=== PATIENT | female | born 1980 | race Caucasian/White ===

== ENCOUNTER 2020-07-01 04:29 | Emergency (ER) | payer OTHER ==
[~2020-07-01] VITALS: Ht 180.3 cm; Wt 109.1 kg
[2020-07-01] MEDS ORDERED: METF10004 PO (05:25)
[2020-07-01] MEDS ORDERED: BUSP10TA PO (05:25)
[2020-07-01] MEDS ORDERED: JARD1TAB PO (05:25)
[2020-07-01] MEDS ORDERED: HUMU500S2 SQ (05:25)
[2020-07-01] MEDS ORDERED: HYDR-3363 PO (05:25)
[2020-07-01] MEDS ORDERED: PIOG1TAB36 PO (05:25)
[2020-07-01 05:26] LABS: HEMATOCRIT 43.2 % (36.0-47.0); HEMOGLOBIN 13.4 g/dl (12.0-15.5); MEAN CORPUSCULAR HEMOGLOBIN 27.6 pg (27.0-33.0); MEAN CORPUSCULAR VOLUME 89.1 fl (80.0-96.0); PLATELET COUNT, AUTOMATED 210 10^3/uL (150-450); RED BLOOD COUNT 4.85 10^6/uL (4.00-5.40); WHITE BLOOD COUNT 7.8 10^3/uL (4.0-10.0)
--- NOTE | 2020-07-01 06:00 | REPVR ---
PROCEDURE INFORMATION: Exam: XR Chest, 1 View Exam date and time: 07/01/2020 5:38 AM Age: 40 years old Clinical indication: Chest pain; Type not specified TECHNIQUE: Imaging protocol: XR of the chest Views: 1 view. COMPARISON: No relevant prior studies available. FINDINGS: Lungs: Unremarkable. No consolidation. Pleural space: Unremarkable. No pleural effusion. No pneumothorax. Heart/Mediastinum: Unremarkable. No cardiomegaly. Bones/joints: Unremarkable. IMPRESSION: No acute findings. Electronically signed by: Kris Gonzalez On 07/01/2020 06:00:43 AM
[2020-07-01 06:15] VITALS: BP 130/68
--- NOTE | 2020-07-02 14:34 | ECGEPIP ---
[facility] - ED Test Date: 2020-07-01 Pat Name: ERMIAS FIELD Department: Room: - Gender: Female [employer]: PORTIA : 1980 Requested By: Darrel Lopes Order Number: [id number] Reading MD: Haley Parrish Measurements Intervals [place] Rate: 89 P: 35 MI: 158 QRS: -2 QRSD: 93 T: 30 QT: 339 QTc: 415 Interpretive Statements SINUS RHYTHM No prior Electronically Signed on 07-02-2020 14:34:21 EST by Haley Parrish
== END 2020-07-01 06:39 | disposition home or self-care (01) ==
LOC: M ED 04:29
DX: F41.1 Generalized anxiety disorder (principal); R00.2 Palpitations; E11.9 Type 2 diabetes mellitus without complications; E66.9 Obesity, unspecified; Z79.4 Long term (current) use of insulin; Z79.899 Other long term (current) drug therapy

== ENCOUNTER 2020-08-21 12:13 | Emergency (ER) | payer OTHER ==
[~2020-08-21] VITALS: Ht 180.3 cm; Wt 111.4 kg
[~2020-08-21 12:13] MED LIST changes: -CEFD1CAP8 PO; -ONDA4TAB6 PO
[2020-08-21] MEDS ORDERED: NS 1,000 ML IV ONE (12:35)
[2020-08-21] MEDS ORDERED: ONDANSETRON 4MG/2ML VIAL IV ONE (12:35)
[2020-08-21 12:59] LABS: VENOUS BASE EXCESS -0.6 (-2.0-2.0); VENOUS HCO3 24.2 MEQ/L (23.0-27.0); VENOUS O2 SATURATION 81.9 % (60.0-80.0); VENOUS PARTIAL PRESSURE CO2 40.5 mmHg (38.0-50.0); VENOUS PARTIAL PRESSURE O2 44.9 mmHg (30.0-50.0); VENOUS PH 7.395 UNITS (7.330-7.430); VENOUS STANDARD HCO3 23.6 MEQ/L; VENOUS TOTAL CO2 25.5 MEQ/L (24.0-28.0)
[2020-08-21 13:06] LABS: BASO % 0.3 % (0.0-1.0); HEMATOCRIT 45.2 % (36.0-47.0); HEMOGLOBIN 14.4 g/dl (12.0-15.5); LYMPH # 0.7 10^3/uL (1.5-5.0); LYMPH % 7.7 % (24.0-44.0); MEAN CORPUSCULAR HEMOGLOBIN 27.5 pg (27.0-33.0); MEAN CORPUSCULAR HGB CONC 31.9 g/dl (32.0-36.5); MEAN CORPUSCULAR VOLUME 86.3 fl (80.0-96.0); MONO # 0.9 10^3/uL (0.0-0.8); MONO % 9.8 % (2.0-8.0); NEUTROPHILS # 7.1 10^3/uL (1.5-8.5); NEUTROPHILS % 81.7 % (36.0-66.0); PLATELET COUNT, AUTOMATED 165 10^3/uL (150-450); RED BLOOD COUNT 5.24 10^6/uL (4.00-5.40); WHITE BLOOD COUNT 8.7 10^3/uL (4.0-10.0)
[2020-08-21] MEDS ORDERED: KETOROLAC 30 MG/ML 1ML VIAL IV ONE (13:25)
[2020-08-21 13:33] LABS: HEMOGLOBIN A1c 9.6 %
[2020-08-21 13:36] LABS: ACETONE/KETONE 1.96 MG/DL (<2.81); ALBUMIN 3.6 GM/DL (3.2-5.2); BILIRUBIN,DIRECT 0.2 MG/DL (0.0-0.2); BILIRUBIN,TOTAL 0.4 MG/DL (0.2-1.0)
[2020-08-21 14:38] LABS: APPEARANCE, URINE CLOUDY (CLEAR); BACTERIA, URINE AUTO 1+ (NEGATIVE); BILIRUBIN, URINE AUTO NEGATIVE (NEGATIVE); BLOOD, URINE BLOOD 2+ (NEGATIVE); COLOR, URINE YELLOW (YELLOW); GLUCOSE, URINE (UA) AUTO 3+ mg/dL (NEGATIVE); KETONE, URINE AUTO NEGATIVE (NEGATIVE); LEUKOCYTE ESTERASE, URINE AUTO 2+ (NEGATIVE); MUCUS, URINE SMALL (NEGATIVE); NITRITE, URINE AUTO POSITIVE (NEGATIVE); PROTEIN, URINE AUTO 1+ mg/dL (NEGATIVE); RBC, URINE AUTO 10 /HPF (0-3); SPECIFIC GRAVITY URINE AUTO 1.012 (1.002-1.035); SQUAMOUS EPITHELIAL CELL UR AU 2 /HPF (0-6); UROBILINOGEN, URINE AUTO 0.2 mg/dL (0.0-2.0); WBC, URINE AUTO 125 /HPF (0-3)
[2020-08-21] MEDS ORDERED: cefTRIAXone SOD 1 GM in D5W MINI-BAG PLUS 50 ML IV ONE (14:55)
[2020-08-21] MEDS ORDERED: CEFD1CAP8 PO (15:01)
[2020-08-21] MEDS ORDERED: ONDA4TAB6 PO (15:01)
[2020-08-21 15:36] VITALS: BP 136/74
== END 2020-08-21 15:56 | disposition home or self-care (01) ==
LOC: M ED 12:13
DX: N39.0 Urinary tract infection, site not specified (principal); R11.2 Nausea with vomiting, unspecified; E11.9 Type 2 diabetes mellitus without complications; Z79.899 Other long term (current) drug therapy
CPT/HCPCS: 80047; 80076; 81001; 82010; 82803; 83036; 84702; 85025; 96361; 96365; 96375; 99284; J0696; J1885; J2405

== ENCOUNTER → 2020-08-21 | Outpatient (REF) | payer OTHER ==
[~2020-08-21] MED LIST: BUSP10TA PO; CEFD1CAP8 PO; HUMU500S2 SQ; HYDR-3363 PO; JARD1TAB PO; METF10004 PO; ONDA4TAB6 PO; PIOG1TAB36 PO
== END ==
LOC: M LAB REF 15:52
PROVIDERS: ATTEND Physician Assistant
DX: N39.0 Urinary tract infection, site not specified (principal)

== ENCOUNTER 2020-10-10 16:27 | Emergency (ER) | payer BC, OTHER ==
[~2020-10-10] VITALS: Ht 180.3 cm; Wt 129.3 kg
[~2020-10-10 16:27] MED LIST changes: +CEFD1CAP8 PO; +ONDA4TAB6 PO
[2020-10-10 18:03] LABS: BASO % 0.4 % (0.0-1.0); EOS # 0.2 10^3/uL (0.0-0.5); EOS % 1.6 % (0.0-3.0); HEMATOCRIT 42.6 % (36.0-47.0); HEMOGLOBIN 13.8 g/dl (12.0-15.5); LYMPH # 1.8 10^3/uL (1.5-5.0); LYMPH % 18.9 % (24.0-44.0); MEAN CORPUSCULAR HEMOGLOBIN 28.2 pg (27.0-33.0); MEAN CORPUSCULAR HGB CONC 32.4 g/dl (32.0-36.5); MEAN CORPUSCULAR VOLUME 87.1 fl (80.0-96.0); MONO # 0.9 10^3/uL (0.0-0.8); MONO % 9.6 % (2.0-8.0); NEUTROPHILS # 6.7 10^3/uL (1.5-8.5); PLATELET COUNT, AUTOMATED 177 10^3/uL (150-450); RED BLOOD COUNT 4.89 10^6/uL (4.00-5.40); WHITE BLOOD COUNT 9.7 10^3/uL (4.0-10.0)
[2020-10-10 18:30] LABS: ERYTHROCYTE SEDIMENTATION RATE 31 mm/hr (0-20)
--- NOTE | 2020-10-10 19:27 | REP ---
INDICATION: big toe wound x 1mo, today worse, DM. COMPARISON: None TECHNIQUE: . FINDINGS: There is no evidence of an acute fracture or destructive osseous lesion. IMPRESSION: No osseous abnormality. <Electronically signed by Simone Arora > 10/10/201923
[2020-10-10] MEDS ORDERED: LIDOCAINE 1% SDV 5ML VIAL DILUENT ONE (19:40)
[2020-10-10] MEDS ORDERED: DOXYCYCLINE HYCLATE 100MG TABLET PO ONE (19:40)
[2020-10-10] MEDS ORDERED: cefTRIAXone SOD 1GM VIAL (J0696 PER 250MG) IM ONE (19:40)
[2020-10-10] MEDS ORDERED: DOXY100C37 PO (19:44)
[2020-10-10 19:52] VITALS: BP 140/80
== END 2020-10-10 20:22 | disposition home or self-care (01) ==
LOC: M ED 16:27
DX: E11.621 Type 2 diabetes mellitus with foot ulcer (principal); L97.529 Non-pressure chronic ulcer of other part of left foot with unspecified severity; L03.032 Cellulitis of left toe; Z79.4 Long term (current) use of insulin; Z79.899 Other long term (current) drug therapy
CPT/HCPCS: 36415; 73660; 80047; 85025; 85652; 86140; 96372; 99283; J0696

== ENCOUNTER 2020-12-14 12:19 | Emergency (ER) | payer OTHER ==
[~2020-12-14] VITALS: Ht 180.3 cm; Wt 113.6 kg
[~2020-12-14 12:19] MED LIST changes: +DOXY1CAP62 PO
[2020-12-14 13:23] LABS: BASO # 0.1 10^3/uL (0.0-0.2); BASO % 0.7 % (0.0-1.0); EOS # 0.2 10^3/uL (0.0-0.5); EOS % 2.5 % (0.0-3.0); HEMATOCRIT 43.4 % (36.0-47.0); HEMOGLOBIN 14.3 g/dl (12.0-15.5); LYMPH # 1.7 10^3/uL (1.5-5.0); LYMPH % 21.5 % (24.0-44.0); MEAN CORPUSCULAR HEMOGLOBIN 28.1 pg (27.0-33.0); MEAN CORPUSCULAR HGB CONC 32.9 g/dl (32.0-36.5); MEAN CORPUSCULAR VOLUME 85.3 fl (80.0-96.0); MONO # 0.7 10^3/uL (0.0-0.8); MONO % 9.5 % (2.0-8.0); NEUTROPHILS % 65.1 % (36.0-66.0); PLATELET COUNT, AUTOMATED 179 10^3/uL (150-450); RED BLOOD COUNT 5.09 10^6/uL (4.00-5.40); WHITE BLOOD COUNT 7.7 10^3/uL (4.0-10.0)
[2020-12-14 14:23] VITALS: BP 123/79
== END 2020-12-14 14:26 | disposition home or self-care (01) ==
LOC: M ED 12:19
DX: S31.000A Unspecified open wound of lower back and pelvis without penetration into retroperitoneum, initial encounter (principal); X58.XXXA Exposure to other specified factors, initial encounter; Y92.9 Unspecified place or not applicable; Y93.9 Activity, unspecified; Y99.9 Unspecified external cause status; E11.65 Type 2 diabetes mellitus with hyperglycemia; F41.9 Anxiety disorder, unspecified; Z79.899 Other long term (current) drug therapy

== ENCOUNTER 2021-04-09 11:40 | Emergency (ER) | payer OTHER ==
[~2021-04-09] VITALS: Ht 180.3 cm; Wt 128.0 kg
[~2021-04-09 11:40] MED LIST changes: +DOXY-443 PO; -DOXY1CAP62 PO
--- OUTSIDE RECORDS SUMMARY | 2021-04-09 11:46 | CCD ---
Author Author [facility] Organization [facility] Address Unknown Phone Unavailable Care Team Providers Care Senior C Web Developer Name Role Phone Nevills, C Tatyana CONFERENCE MANAGER Unavailable Unavailable Nevills, C Tatyana CONFERENCE MANAGER Unavailable Unavailable Nevills, C Tatyana CONFERENCE MANAGER Unavailable Unavailable Nevills, C Tatyana CONFERENCE MANAGER Unavailable Unavailable Nevills, C Tatyana CONFERENCE MANAGER Unavailable Unavailable Nevills, C Tatyana CONFERENCE MANAGER Unavailable Unavailable Nevills, C Tatyana CONFERENCE MANAGER Unavailable Unavailable Nevills, C Tatyana CONFERENCE MANAGER Unavailable Unavailable Nevills, C Tatyana CONFERENCE MANAGER Unavailable Unavailable Nevills, C Tatyana CONFERENCE MANAGER Unavailable Unavailable Nevills, C Tatyana CONFERENCE MANAGER Unavailable Unavailable Nevills, C Tatyana CONFERENCE MANAGER Unavailable Unavailable Nevills, C Tatyana CONFERENCE MANAGER Unavailable Unavailable Nevills, C Tatyana CONFERENCE MANAGER Unavailable Unavailable Nevills, C Tatyana CONFERENCE MANAGER Unavailable Unavailable Nevills, C Tatyana CONFERENCE MANAGER Unavailable Unavailable Nevills, C Tatyana CONFERENCE MANAGER Unavailable Unavailable Nevills, C Tatyana CONFERENCE MANAGER Unavailable Unavailable Nevills, C Tatyana CONFERENCE MANAGER Unavailable Unavailable Nevills, C Tatyana CONFERENCE MANAGER Unavailable Unavailable Nevills, C Tatyana CONFERENCE MANAGER Unavailable Unavailable Nevills, C Tatyana CONFERENCE MANAGER Unavailable Unavailable Nevills, C Tatyana CONFERENCE MANAGER Unavailable Unavailable Nevills, C Tatyana CONFERENCE MANAGER Unavailable Unavailable Nevills, C Tatyana CONFERENCE MANAGER Unavailable Unavailable Nevills, C Tatyana CONFERENCE MANAGER Unavailable Unavailable Nevills, C Tatyana CONFERENCE MANAGER Unavailable Unavailable Nevills, C Tatyana CONFERENCE MANAGER Unavailable Unavailable Nevills, C Tatyana CONFERENCE MANAGER Unavailable Unavailable Nevills, C Tatyana CONFERENCE MANAGER Unavailable Unavailable Nevills, C Tatyana CONFERENCE MANAGER Unavailable Unavailable Nevills, C Tatyana CONFERENCE MANAGER Unavailable Unavailable Nevills, C Tatyana CONFERENCE MANAGER Unavailable Unavailable Nevills, C Tatyana CONFERENCE MANAGER Unavailable Unavailable Mac, Karlie Evelin ANP-BC Unavailable Unavailable Mca, Karlie Evelin ANP-BC Unavailable Unavailable Mac, Karlie Evelin ANP-BC Unavailable Unavailable Mac, Karlie Evelin ANP-BC Unavailable Unavailable Mac, Karlie Evelin ANP-BC Unavailable Unavailable Mac, Karlie Evelin ANP-BC Unavailable Unavailable Mac, Karlie Evelin ANP-BC Unavailable Unavailable Mac, Karlie Evelin ANP-BC Unavailable Unavailable Mac, Karlie Evelin ANP-BC Unavailable Unavailable Mac, Karlie Evelin ANP-BC Unavailable Unavailable Mac, Karlie Evelin ANP-BC Unavailable Unavailable Mac, Karlie Evelin ANP-BC Unavailable Unavailable Mac, Karlie Evelin ANP-BC Unavailable Unavailable Mac, Karlie Evelin ANP-BC Unavailable Unavailable Mac, Karlie Evelin ANP-BC Unavailable Unavailable Mac, Karlie Evelin ANP-BC Unavailable Unavailable Mac, Karlie Evelin ANP-BC Unavailable Unavailable Mac, Karlie Evelin ANP-BC Unavailable Unavailable Mac, Karlie Evelin ANP-BC Unavailable Unavailable Mac, Karlie Evelin ANP-BC Unavailable Unavailable Mac, Karlie Evelin ANP-BC Unavailable Unavailable Mac, Karlie Evelin ANP-BC Unavailable Unavailable Mac, Karlie Evelin ANP-BC Unavailable Unavailable Mac, Karlie Evelin ANP-BC Unavailable Unavailable Mac, Karlie Evelin ANP-BC Unavailable Unavailable Mac, Karlie Evelin ANP-BC Unavailable Unavailable Mac, Karlie Evelin ANP-BC Unavailable Unavailable Mac, Karlie Evelin ANP-BC Unavailable Unavailable Mac, Karlie Evelin ANP-BC Unavailable Unavailable Mac, Karlie Evelin ANP-BC Unavailable Unavailable Mac, Karlie Evelin ANP-BC Unavailable Unavailable Mac, Karlie Evelin ANP-BC Unavailable Unavailable Mac, Karlie Evelin ANP-BC Unavailable Unavailable Mac, Karlie Evelin ANP-BC Unavailable Unavailable Mac, Karlie Evelin ANP-BC Unavailable Unavailable Mac, Karlie Evelin ANP-BC Unavailable Unavailable Karlie Watts Evelin ANP-BC Unavailable Unavailable MacKarlie Evelin ANP-BC Unavailable Unavailable Karlie Watts Evelin ANP-BC Unavailable Unavailable MacKarlie Evelin ANP-BC Unavailable Unavailable Karlie Watts Evelin ANP-BC Unavailable Unavailable Karlie Watts Evelin ANP-BC Unavailable Unavailable Karlie Watts Evelin ANP-BC Unavailable Unavailable MacKarlie Evelin ANP-BC Unavailable Unavailable MacKarlie Evelin ANP-BC Unavailable Unavailable MacKarlie Evelin ANP-BC Unavailable Unavailable Karlie Watts Evelin ANP-BC Unavailable Unavailable Karlie Watts Evelin ANP-BC Unavailable Unavailable Karlie Watts Evelin ANP-BC Unavailable Unavailable Karlie Watts Evelin ANP-BC Unavailable Unavailable Karlie Watts Evelin ANP-BC Unavailable Unavailable Karlie Watts Evelin ANP-BC Unavailable Unavailable Karlie Watts Evelin ANP-BC Unavailable Unavailable Karlie Watts Evelin ANP-BC Unavailable Unavailable Karlie Watts Evelin ANP-BC Unavailable Unavailable Karlie Watts Evelin ANP-BC Unavailable Unavailable Karlie Watts Evelin ANP-BC Unavailable Unavailable Karlie Watts Evelin ANP-BC Unavailable Unavailable Karlie Watts Evelin ANP-BC Unavailable Unavailable Karlie Watts Eevlin ANP-BC Unavailable Unavailable Karlie Watts Evelin ANP-BC Unavailable Unavailable Karlie Watts Evelin ANP-BC Unavailable Unavailable Karlie Watts Evelin ANP-BC Unavailable Unavailable Karlie Watts Evelin ANP-BC Unavailable Unavailable Karlie Watts Evelin ANP-BC Unavailable Unavailable Karlie Watts Evelin ANP-BC Unavailable Unavailable Nevills, C Tatyana CONFERENCE MANAGER Unavailable Unavailable Nevills, C Tatyana CONFERENCE MANAGER Unavailable Unavailable Nevills, C Tatyana CONFERENCE MANAGER Unavailable Unavailable Nevills, C Tatyana CONFERENCE MANAGER Unavailable Unavailable Nevills, C Tatyana CONFERENCE MANAGER Unavailable Unavailable Nevills, C Tatyana CONFERENCE MANAGER Unavailable Unavailable Nevills, C Tatyana CONFERENCE MANAGER Unavailable Unavailable Nevills, C Tatyana CONFERENCE MANAGER Unavailable Unavailable Nevills, C Tatyana CONFERENCE MANAGER Unavailable Unavailable Nevills, C Tatyana CONFERENCE MANAGER Unavailable Unavailable Nevills, C Tatyana CONFERENCE MANAGER Unavailable Unavailable Nevills, C Tatyana CONFERENCE MANAGER Unavailable Unavailable Nevills, C Tatyana CONFERENCE MANAGER Unavailable Unavailable Nevills, C Tatyana CONFERENCE MANAGER Unavailable Unavailable Nevills, C Tatyana CONFERENCE MANAGER Unavailable Unavailable Nevills, C Tatyana CONFERENCE MANAGER Unavailable Unavailable Nevills, C Tatyana CONFERENCE MANAGER Unavailable Unavailable Nevills, C Tatyana CONFERENCE MANAGER Unavailable Unavailable Nevills, C Tatyana CONFERENCE MANAGER Unavailable Unavailable Nevills, C Tatyana CONFERENCE MANAGER Unavailable Unavailable Nevills, C Tatyana CONFERENCE MANAGER Unavailable Unavailable Nevills, C Tatyana CONFERENCE MANAGER Unavailable Unavailable Nevills, C Tatyana CONFERENCE MANAGER Unavailable Unavailable Nevills, C Tatyana CONFERENCE MANAGER Unavailable Unavailable Nevills, C Tatyana CONFERENCE MANAGER Unavailable Unavailable Nevills, C Tatyana CONFERENCE MANAGER Unavailable Unavailable Nevills, C Tatyana CONFERENCE MANAGER Unavailable Unavailable Nevills, C Tatyana CONFERENCE MANAGER Unavailable Unavailable Nevills, C Tatyana CONFERENCE MANAGER Unavailable Unavailable Nevills, C Tatyana CONFERENCE MANAGER Unavailable Unavailable Nevills, C Tatyana CONFERENCE MANAGER Unavailable Unavailable Nevills, C Tatyana CONFERENCE MANAGER Unavailable Unavailable Nevills, C Tatyana CONFERENCE MANAGER Unavailable Unavailable Nevills, C Tatyana CONFERENCE MANAGER Unavailable Unavailable RING, K MILLIE PA Unavailable Unavailable RING, K MILLIE PA Unavailable Unavailable RING, K MILLIE PA Unavailable Unavailable RING, K MILLIE PA Unavailable Unavailable RING, K MILLIE PA Unavailable Unavailable RING, K MILLIE PA Unavailable Unavailable RING, K MILLIE PA Unavailable Unavailable RING, K MILLIE PA Unavailable Unavailable RING, K MILLIE PA Unavailable Unavailable RING, K MILLIE PA Unavailable Unavailable RING, K MILLIE PA Unavailable Unavailable RING, K MILLIE PA Unavailable Unavailable RING, K MILLIE PA Unavailable Unavailable RING, K MILLIE PA Unavailable Unavailable RING, K MILLIE PA Unavailable Unavailable RING, K MILLIE PA Unavailable Unavailable RING, K MILLIE PA Unavailable Unavailable RING, K MILLIE PA Unavailable Unavailable RING, K MILLIE PA Unavailable Unavailable RING, K MILLIE PA Unavailable Unavailable RING, K MILLIE PA Unavailable Unavailable Tu Nichols MD Unavailable Unavailable Tu Nichols MD Unavailable Unavailable Tu Nichols MD Unavailable Unavailable Tu Nichols MD Unavailable Unavailable Tu Nichols MD Unavailable Unavailable Tu Nichols MD Unavailable Unavailable Tu Nichols MD Unavailable Unavailable Tu Nichols MD Unavailable Unavailable Tu Nichols MD Unavailable Unavailable Tu Nichols MD Unavailable Unavailable Tu Nichols MD Unavailable Unavailable Tu Nichols MD Unavailable Unavailable Tu Nichols MD Unavailable Unavailable Tu Nichols MD Unavailable Unavailable VaneenenaamTu MD Unavailable Unavailable VaneenenaamTu MD Unavailable Unavailable VaneenronaldamTu MD Unavailable Unavailable Vaneenenaam, Tu Leger MD Unavailable Unavailable Vaneenenaam, Tu Leger MD Unavailable Unavailable Vaneenenaam, Tu Leger MD Unavailable Unavailable VaneenenaamTu MD Unavailable Unavailable Vaneenronaldam, Tu Leger MD Unavailable Unavailable Vaneenronaldam, Tu Leger MD Unavailable Unavailable Vaneenronaldam, Tu Leger MD Unavailable Unavailable Vaneenenaam, Tu Leger MD Unavailable Unavailable Vaneenenaam, Tu Leger MD Unavailable Unavailable Vaneenenaam, Tu Leger MD Unavailable Unavailable Vanjesi, Tu Leger MD Unavailable Unavailable Vaneenronaldam, Tu Leger MD Unavailable Unavailable Vaneenjame, Tu Leger MD Unavailable Unavailable Vaneenronaldam, Tu Leger MD Unavailable Unavailable Vanjesi, Tu Leger MD Unavailable Unavailable Vanjesi, Tu Leger MD Unavailable Unavailable VanTu dennison MD Unavailable Unavailable Vanjesi, Tu Leger MD Unavailable Unavailable Vanjesi, Tu Leger MD Unavailable Unavailable Vanjesi, Tu Leger MD Unavailable Unavailable Vanjesi, Tu Leger MD Unavailable Unavailable VaneenronaldamTu MD Unavailable Unavailable VanTu dennison MD Unavailable Unavailable VanTu dennison MD Unavailable Unavailable VanTu dennison MD Unavailable Unavailable Vanjesi, Tu Leger MD Unavailable Unavailable VanTu dennison MD Unavailable Unavailable Vanmuniram, Tu Leger MD Unavailable Unavailable VanTu dennison MD Unavailable Unavailable Juan Daniel Terry MD Unavailable Unavailable Juan Daniel Terry MD Unavailable Unavailable Juan Daniel Terry MD Unavailable Unavailable Juan Daniel Terry MD Unavailable Unavailable Juan Daniel Terry MD Unavailable Unavailable Juan Daniel Terry MD Unavailable Unavailable Juan Daniel Terry MD Unavailable Unavailable Juan Daniel Terry MD Unavailable Unavailable Juan Daniel Terry MD Unavailable Unavailable Juan Daniel Terry MD Unavailable Unavailable Juan Daniel Terry MD Unavailable Unavailable Juan Daniel Terry MD Unavailable Unavailable Juan Daniel Terry MD Unavailable Unavailable Juan Daniel Terry MD Unavailable Unavailable Juan Daniel Terry MD Unavailable Unavailable Juan Daniel Terry MD Unavailable Unavailable Juan Daniel Terry MD Unavailable Unavailable Juan Daniel Terry MD Unavailable Unavailable Juan Daniel Terry MD Unavailable Unavailable Juan Daniel Terry MD Unavailable Unavailable Juan Daniel Terry MD Unavailable Unavailable Juan Daniel Terry MD Unavailable Unavailable Juan Daniel Terry MD Unavailable Unavailable Juan Daniel Terry MD Unavailable Unavailable Juan Daniel Terry MD Unavailable Unavailable Juan Daniel Terry MD Unavailable Unavailable Juan Daniel Terry MD Unavailable Unavailable Juan Daniel Terry MD Unavailable Unavailable Juan Daniel Terry MD Unavailable Unavailable Juan Daniel Terry MD Unavailable Unavailable Juan Daniel Terry MD Unavailable Unavailable Juan aDniel Terry MD Unavailable Unavailable Juan Daniel Terry MD Unavailable Unavailable Juan Daniel Terry MD Unavailable Unavailable Juan Daniel Terry MD Unavailable Unavailable Juan Daniel Terry MD Unavailable Unavailable Juan Daniel Terry MD Unavailable Unavailable Juan Daniel Terry MD Unavailable Unavailable Juan Daniel Terry MD Unavailable Unavailable Juan Daniel Terry MD Unavailable Unavailable Juan Daniel Terry MD Unavailable Unavailable Juan Daniel Terry MD Unavailable Unavailable Juan Daniel Terry MD Unavailable Unavailable Juan Daniel Terry MD Unavailable Unavailable Juan Daniel Terry MD Unavailable Unavailable Juan Daniel Terry MD Unavailable Unavailable Juan Daniel Terry MD Unavailable Unavailable Juan Daniel Terry MD Unavailable Unavailable Juan Daniel Terry MD Unavailable Unavailable Juan Daniel Terry MD Unavailable Unavailable Juan Daniel Terry MD Unavailable Unavailable Juan Daniel Terry MD Unavailable Unavailable Juan Daniel Terry MD Unavailable Unavailable Juan Daniel Terry MD Unavailable Unavailable Juan Daniel Terry MD Unavailable Unavailable Juan Daniel Terry MD Unavailable Unavailable Juan Daniel Terry MD Unavailable Unavailable Juan Daniel Terry MD Unavailable Unavailable Juan Daniel Terry MD Unavailable Unavailable Juan Daniel Terry MD Unavailable Unavailable Juan Daniel Terry MD Unavailable Unavailable Juan Daniel Terry MD Unavailable Unavailable Juan Daniel Terry MD Unavailable Unavailable Juan Daniel Terry MD Unavailable Unavailable Juan Daniel Terry MD Unavailable Unavailable Juan Daniel Terry MD Unavailable Unavailable Juan Daniel Terry MD Unavailable Unavailable Juan Daniel Terry MD Unavailable Unavailable Harrison, Juan Daniel Stover MD Unavailable Unavailable Harrison, Juan Daniel Stover MD Unavailable Unavailable Harrison, Juan Daniel Stover MD Unavailable Unavailable Harrison, Juan Daniel Stover MD Unavailable Unavailable Harrison, Juan Daniel Stover MD Unavailable Unavailable Harrison, Juan Daniel Stover MD Unavailable Unavailable Harrison, Juan Daniel Stover MD Unavailable Unavailable Harrison, Juan Daniel Stover MD Unavailable Unavailable Harrison, Juan Daniel Stover MD Unavailable Unavailable Harrison, Juan Daniel Stover MD Unavailable Unavailable Harrison, Juan Daniel Stover MD Unavailable Unavailable Harrison, Juan Daniel Stover MD Unavailable Unavailable Harrison, Juan Daniel Stover MD Unavailable Unavailable Harrison, Juan Daniel Stover MD Unavailable Unavailable Harrison, Juan Daniel Stover MD Unavailable Unavailable Harrison, Juan Daniel Stover MD Unavailable Unavailable Harrison, Juan Daniel Stover MD Unavailable Unavailable Harrison, Juan Daniel Stover MD Unavailable Unavailable Harrison, Juan Daniel Stover MD Unavailable Unavailable Harrison, Juan Daniel Stover MD Unavailable Unavailable Harrison, Juan Daniel Stover MD Unavailable Unavailable Harrison, Juan Daniel Stover MD Unavailable Unavailable Harrison, Juan Daniel Stover MD Unavailable Unavailable Harrison, Juan Daniel Stover MD Unavailable Unavailable Harrison, Juan Daniel Stover MD Unavailable Unavailable Harrison, Juan Daniel Stover MD Unavailable Unavailable Harrison, Juan Daniel Stover MD Unavailable Unavailable Harrison, Juan Daniel Stover MD Unavailable Unavailable Harrison, Juan Daniel Stover MD Unavailable Unavailable Harrison, Juan Daniel Sotver MD Unavailable Unavailable Harrison, Juan Daniel Stover MD Unavailable Unavailable Harrison, Juan Daniel Stover MD Unavailable Unavailable Harrison, Juan Daniel Stover MD Unavailable Unavailable NOT, SPECIFIED Unavailable Unavailable Re-disclosure Warning The records that you are about to access may contain information from federally-assisted alcohol or drug abuse programs. If such information is present, then the following federally mandated warning applies: This information has been disclosed to you from records protected by federal confidentiality rules (42 CFR part 2). The federal rules prohibit you from making any further disclosure of this information unless further disclosure is expressly permitted by the written consent of the person to whom it pertains or as otherwise permitted by 42 CFR part 2. A general authorization for the release of medical or other information is NOT sufficient for this purpose. The Federal rules restrict any use of the information to criminally investigate or prosecute any alcohol or drug abuse patient.The records that you are about to access may contain highly sensitive health information, the redisclosure of which is protected by Article 27-F of the [facility] Public Health law. If you continue you may have access to information: Regarding HIV / AIDS; Provided by facilities licensed or operated by the [facility] Office of Mental Health; or Provided by the [facility] Office for People With Developmental Disabilities. If such information is present, then the following [facility] mandated warning applies: This information has been disclosed to you from confidential records which are protected by state law. State law prohibits you from making any further disclosure of this information without the specific written consent of the person to whom it pertains, or as otherwise permitted by law. Any unauthorized further disclosure in violation of state law may result in a fine or long-term sentence or both. A general authorization for the release of medical or other information is NOT sufficient authorization for further disc losure. Allergies and Adverse Reactions Type Description Substance Reaction Status Data Source(s ) No Known Drug Allergies No Known Drug Allergies [facility] Encounters Encounter Providers Location Date Indications Data Source(s ) Recurring Patient Referrer: Ck Terry MD 03/05/2021 09:56:39 AM EDT [facility] Outpatient Attender: Tatyana Aponte CONFERENCE MANAGER Family Practice 12/30 03:00:00 PM EDT [facility] ([facility] Outpatient Attender: Tatyana Aponte NPConsultant: Evelin DIAZ 12/30/2020 02:34:00 PM EDT - 12/30/2020 02:34:00 PM EDT [facility] Outpatient Attender: Tatyana Aponte NPConsultant: Evelin DIAZ 12/23/2020 08:15:00 AM EDT - 12/23/2020 08:15:00 AM EDT [facility] Outpatient Attender: MILLIE Ayala 08/21/2020 10:30:00 AM EDT [facility] ([facility]) OFFICE OUTPATIENT NEW 30 MINUTES Attender: Tu Gifford am, MD Physical Therapy 05/09/2020 08:15:00 AM EST [facility] ([facility] ) Outpatient Attender: Evelin HERNANDEZ-BCConsultant: Evelin DIAZ 04/22/2020 09:02:00 AM [facility] Outpatient Attender: Evelin COLLINSBCConsultant: SPECIFIED NOT 04/07/2020 09:36:00 AM EST - 04/07/2020 09:36:00 AM [facility] Outpatient Attender: Evelin COLLINSBCConsultant: SPECIFIED NOT 03/19/2020 08:02:00 AM EDT - 03/19/2020 08:02:00 AM EDT [facility] Outpatient Attender: Evelin COLLINSBCConsultant: SPECIFIED NOT 03/06/2020 09:45:00 AM EDT - 03/06/2020 09:45:00 AM EDT [facility] Immunizations Vaccine Date Status Description Data Source(s) New in 2011. IIV4 03/06/2020 03:03:00 PM EDT completed [facility] ([facility]) Medications Medication Brand Name Start Date Product Form Dose Route Admi nistrative Instructions Pharmacy Instructions Status Indications Reaction Description Data Source(s) Blood Glucose Monitoring System 12/30/2020 12:00:00 AM EDT active [facility] ([facility]) Lancets Micro Thin 33G 12/30/2020 12:00:00 AM EDT active [facility] ([facility]) Glucose Meter Test Strips Advanced 12/30/2020 12:00:00 AM EDT active [facility] ([facility]) NITROFURANTOIN, MACROCRYSTALS 25 MG / Ni trofurantoin, Monohydrate 75 MG Oral Capsule [Macrobid] Macrobid 08/21/2020 12:00:00 AM EDT ORAL active [facility] ([facility]) buspirone hydrochloride 10 MG Oral Tablet Buspirone HCL 04/07/2020 12:00:00 AM EST ORAL active [facility] ([facility]) empagliflozin 25 MG Oral Tablet [Jardiance] Jardiance 04/07/2020 12:00:00 AM EST active [facility] ([facility]) Hydroxyzine Hydrochloride 25 MG Oral Tablet Hydroxyzine HCL 04/07/2020 12:00:00 AM EST ORAL active [facility] ([facility]) pioglitazone 30 MG Oral Tablet Pioglitazone HCL 04/07/2020 12:00:00 A M EST active [facility] ([facility]) Humulin R U-500 Kwikpen Humulin R U-500 Kwikpen 03/06/2020 12:00:00 A M EDT active [facility] ([facility]) buspirone hydrochloride 7.5 MG Oral Tablet Buspirone HCL 03/06/2020 12:00:00 AM EDT ORAL completed [facility] ([facility]) Insurance Providers Payer name Policy type / Coverage type Policy ID Covered alliance party ID Covered alliance party's relationship to evans Policy [place] Plan Information [employer] [id number] [place] [id number] [place] [id number] 01 [id number] [facility] [id number] BC[place] PPO 302/[id number] SP [id number] [place] [id number] [facility] F [id number] SELF [id number] [employer] [place] [id number] Problems, Conditions, and Diagnoses Code Display Name Description Problem Type Effective Dates Data Source(s) F419 Anxiety disorder, unspecified Anxiety disorder, unspec ified Diagnosis 12/23/2020 08:15:00 AM EDT [facility] E1165 Type 2 diabetes mellitus with hyperglyce murphy Type 2 diabetes mellitus with hyperglycemia Diagnosis 12/23/2020 08:15:00 AM EDT [facility] Z0001 Encounter for general adult medical exam ination with abnormal findings Encounter for general adult medical examination with abnormal findings Diagnosis 12/23/2020 08:15:00 AM EDT [facility] [id number] Pain in right shoulder Pain in right shoulder Diagnosi s 04/22/2020 09:02:00 AM [facility] Z23 Encounter for immunization Encounter for immunization Diagnosis 03/06/2020 09:45:00 AM EDT [facility] Z6841 Body mass index [BMI]40.0-44.9, adult Jesus dy mass index [BMI]40.0-44.9, adult Diagnosis 03/06/2020 09:45:00 AM EDT [facility] E6601 Morbid (severe) obesity due to excess ca lories Morbid (severe) obesity due to excess calories Diagnosis 03/06/2020 09:45:00 AM EDT [facility] K219 Gastro-esophageal reflux disease without esophagitis Gastro-esophageal reflux disease without esophagitis Diagnosis 03/06/2020 09:45:00 AM ED T [facility] G4700 Insomnia, unspecified Insomnia, unspecified Diagnosis 03/06/2020 09:45:00 AM EDT [facility] [id number] Pain in unspecified foot Pain in unspecified foot Diag nosis 03/06/2020 09:45:00 AM EDT [facility] [id number] Unspecified rotator cuff tea r or rupture of right shoulder, not specified as traumatic Unspecified rotator cuff tear or rupture of right shoulder, not specified as traumatic Diagnosis 03/06/2020 09:45:00 AM EDT [facility] G4733 Obstructive sleep apnea (adult) (pediatr ic) Obstructive sleep apnea (adult) (pediatric) Diagnosis 03/06/2020 09:45:00 AM EDT [facility] [id number] Type 2 diabetes mellitus Type 2 diabetes mellitus Prob sofie 05/09/2020 12:00:00 AM EST [facility] ([facility] ) E66.01 Morbid obesity Morbid obesity Problem 04/07/2020 12:00: 00 AM EST [facility] ([facility]) K21.9 Gastroesophageal reflux disease Gastroesophageal reflu x disease Problem 04/07/2020 12:00:00 AM EST [facility] ([facility]) G47.00 Insomnia Insomnia Problem 04/07/2020 12:00:00 AM ES T [facility] ([facility]) M79.673 Pain in limb Pain in limb Problem 04/07/2020 12:00:00 A M EST [facility] ([facility]) M75.101 Disorder of bursa of shoulder region Dis order of bursa of shoulder region Problem 04/07/2020 12:00:00 AM EST [facility] ([facility]) E78.00 Pure hypercholesterolemia Pure hypercholesterolemia Pr oblem 04/07/2020 12:00:00 AM EST [facility] ([facility]) G47.33 Obstructive sleep apnea syndrome Obstructive sle ep apnea syndrome Problem 04/07/2020 12:00:00 AM EST [facility] ([facility]) F41.9 Anxiety state Anxiety state Problem 04/07/2020 12:00:00 AM EST [facility] ([facility]) E11.65 Type II diabetes mellitus uncontrolled T ype II diabetes mellitus uncontrolled Problem 04/07/2020 12:00:00 AM EST [facility] ([facility]) Surgeries/Procedures Procedure Description Date Indications Data Source(s) OFFICE OUTPATIENT VISIT 25 MINUTES 12/30/2020 12:00:00 AM EDT [facility] ([facility]) RADEX SHOULDER COMPLETE MINIMUM 2 VIEWS 05/09/2020 12: 00:00 AM EST [facility] ([facility] ) Brief Emotional/Behav Assessment W/ Scoring Doc Per Standard Inst 03/06/2020 12:00:00 AM EDT [facility] ([facility]) Results ID Date Data Source [id number] 12/30/2020 03:48:00 PM EDT [facility] ([facility]) Name Value Range Interpretation Code Description Data Renata rce(s) Supporting Document(s) Mammo Screening Bilateral with CAD Laboratory test result [facility] ([facility]) ID Date Data Source [id number] 12/23/2020 08:20:00 AM EDT [facility] ([facility]) Name Value Range Interpretation Code Description Data Renata rce(s) Supporting Document(s) Thyrotropin [Units/volume] in Serum or Plasma 0.68 uIU/mL 0.47-5.01 [facility] ([facility]) Is patient fasting? Y ID Date Data Source [id number] 12/23/2020 08:20:00 AM EDT [facility] ([facility]) Name Value Range Interpretation Code Description Data Renata rce(s) Supporting Document(s) Cve Panel Laboratory test result [facility] ([facility]) Is patient fasting? Y Cholesterol 198 mg/dL 131-200 [facility] ([facility]) Is patient fasting? Y Triglycerides 246 mg/dL 35-160 Above high normal MEDE NT ([facility]) Is patient fasting? Y HDL 35 mg/dL 29-86 [facility] ([facility]) Is patient fasting? Y Risk Factor 5.7 3.2-4.4 Above high normal [facility] ([facility]) Is patient fasting? Y LDL 133 mg/dL 65-175 [facility] ([facility]) Is patient fasting? Y LDL/HDL 3.80 1.47-3.22 Above high normal [facility] ([facility]) Is patient fasting? Y ID Date Data Source [id number] 12/23/2020 08:20:00 AM EDT [facility] ([facility]) Name Value Range Interpretation Code Description Data Renata rce(s) Supporting Document(s) Hemoglobin A1c/Hemoglobin.total in Blood 11.1 % 4.4-6.1 Above high normal [facility] ([facility]) Is patient fasting? Y ID Date Data Source [id number] 12/23/2020 08:20:00 AM EDT [facility] ([facility]) Name Value Range Interpretation Code Description Data Renata rce(s) Supporting Document(s) Sodium 138 meq/L 134-153 [facility] ([facility]) Is patient fasting? Y Comprehensive Metabo Laboratory test result [facility] ([facility]) Is patient fasting? Y Chloride 101 meq/L 98-107 [facility] ([facility]) Is patient fasting? Y Potassium 4.4 meq/L 3.6-5.0 [facility] ([facility]) Is patient fasting? Y Glucose 330 mg/dL 70-99 Above high normal [facility] ([facility]) Is patient fasting? Y Co2 27 meq/L 22-30 [facility] ([facility]) Is patient fasting? Y BUN 9 mg/dL 7-21 [facility] ([facility]) Is patient fasting? Y Creatinine 0.5 mg/dL 0.7-1.5 Below low normal [facility] ( [facility]) Is patient fasting? Y Total Protein 7.0 g/dL 6.3-8.2 [facility] ([facility]) Is patient fasting? Y BUN/Creat 18 8-27 [facility] ([facility]) Is patient fasting? Y Globulin 2.9 GM/DL 2.4-3.2 [facility] ([facility]) Is patient fasting? Y Albumin 4.1 g/dL 3.9-5.0 [facility] ([facility]) Is patient fasting? Y A/G Ratio 1.4 0.8-2.0 [facility] ([facility]) Is patient fasting? Y Total Bili Laboratory test result 0.2-1.3 ME [facility] ([facility]) Is patient fasting? Y Calcium 9.2 mg/dL 8.4-10.2 [facility] ([facility]) Is patient fasting? Y Sgot/Ast 57 U/L 5-40 Above high normal [facility] ([facility]) Is patient fasting? Y Alkaline Phos 104 U/L 38-126 [facility] ([facility]) Is patient fasting? Y Anion Gap 10.0 mmol/L 8.0-16.0 [facility] ([facility]) Is patient fasting? Y SGPT/Alt 52 U/L 7-56 [facility] ([facility]) Is patient fasting? Y Age 40 yrs [facility] ([facility]) Is patient fasting? Y Non-Aa GFR Laboratory test result [facility] ([facility]) Is patient fasting? Y Afr Amer GFR Laboratory test result [facility] ([facility]) Is patient fasting? Y ID Date Data Source [id number] 12/23/2020 08:20:00 AM EDT [facility] ([facility]) Name Value Range Interpretation Code Description Data Renata rce(s) Supporting Document(s) CBC W/Automated Diff Laboratory test result [facility] ([facility]) Is patient fasting? Y RBC 4.95 10^6/uL 4.20-5.40 [facility] ([facility]) Is patient fasting? Y WBC 6.3 10^3/uL 4.2-11.0 [facility] ([facility]) Is patient fasting? Y Hemoglobin 14.0 g/dL 12.0-16.0 [facility] ([facility]) Is patient fasting? Y Hematocrit 43.5 % 37.0-47.0 [facility] ([facility]) Is patient fasting? Y MCV 87.9 fL 81.0-101 [facility] ([facility]) Is patient fasting? Y MCHC 32.2 g/dL 31.0-36.0 [facility] ([facility]) Is patient fasting? Y MCH 28.3 pg 27.0-34.0 [facility] ([facility]) Is patient fasting? Y Platelets 160 10^3/uL 150-450 [facility] ([facility]) Is patient fasting? Y RDW 13.3 % 11.5-14.5 [facility] ([facility]) Is patient fasting? Y MPV 13.8 fL 7.4-10.4 Above high normal [facility] ([facility]) Is patient fasting? Y Neut 66.2 % 37.0-80.0 [facility] ([facility]) Is patient fasting? Y Lymph 21.8 % 25.0-40.0 Below low normal [facility] ( [facility]) Is patient fasting? Y Panola 9.0 % 3.0-8.0 Above high normal [facility] ([facility]) Is patient fasting? Y Eos 2.1 % 0.0-7.0 [facility] ([facility]) Is patient fasting? Y %NRBC 0.0 % 0.0-0.0 [facility] ([facility]) Is patient fasting? Y Baso 0.6 % 0.0-2.5 [facility] ([facility]) Is patient fasting? Y %Ig 0.3 % 0.0-0.0 Above high normal [facility] ([facility]) Is patient fasting? Y #Neut 4.18 10^3/uL 2.00-6.90 [facility] ([facility]) Is patient fasting? Y #Lymph 1.38 10^3/uL 0.60-3.40 [facility] ([facility]) Is patient fasting? Y #Panola 0.57 10^3/uL 0.00-0.90 [facility] ([facility]) Is patient fasting? Y #Baso 0.04 10^3/uL 0.00-0.20 [facility] ([facility]) Is patient fasting? Y #Eos 0.13 10^3/uL 0.00-0.70 [facility] ([facility]) Is patient fasting? Y #Ig 0.02 10^3/uL 0.00-0.10 [facility] ([facility]) Is patient fasting? Y #NRBC 0.00 10^3/uL 0.00-0.00 [facility] ([facility]) Is patient fasting? Y Manual Diff Laboratory test result M [facility] ([facility]) Is patient fasting? Y RBC Morph Laboratory test result [facility] ([facility]) Is patient fasting? Y ID Date Data Source [id number] 12/23/2020 06:42:00 PM EDT [facility] Name Value Range Interpretation Code Description Data Renata rce(s) Supporting Document(s) Thyrotropin [Units/volume] in Serum or Plasma by Detec tion limit <= 0.05 mIU/L 0.68 uIU/mL 0.47 - 5.01 [facility] ID Date Data Source [id number] 12/23/2020 06:37:00 PM EDT [facility] Name Value Range Interpretation Code Description Data Renata rce(s) Supporting Document(s) CBC W/AUTOMATED DIFF [facility] COMPLETE BLOOD COUNT Leukocytes [#/volume] in Blood by Automated count 6.3 10^3/uL 4.2 - 1 1.0 [facility] Erythrocytes [#/volume] in Blood by Automated count 4.95 10^6/uL 4. 20 - 5.40 [facility] Hemoglobin [Mass/volume] in Blood 14.0 g/dL 12.0 - 16.0 [facility] Hematocrit [Volume Fraction] of Blood by Automated count 43.5 % 3 7.0 - 47.0 [facility] Erythrocyte mean corpuscular volume [Entitic volume] by Auto mated count 87.9 fL 81.0 - 101 [facility] Erythrocyte mean corpuscular hemoglobin [Entitic mass] by Automated count 28.3 pg 27.0 - 34.0 [facility] Erythrocyte mean corpuscular hemoglobin concentration [Mass/volume] by Automated count 32.2 g/dL 31.0 - 36.0 [facility] Erythrocyte distribution width [Ratio] by Automated count 13.3 % 11.5 - 14.5 [facility] Platelets [#/volume] in Blood by Automated count 160 10^3/uL 150 - 45 0 [facility] Platelet mean volume [Entitic volume] in Blood by Automated count 13.8 fL 7.4 - 10.4 H [facility] Neutrophils/100 leukocytes in Blood by Automated count 66.2 % 37. 0 - 80.0 [facility] Lymphocytes/100 leukocytes in Blood by Manual count 21.8 % 25.0 - 40.0 L [facility] Monocytes/100 leukocytes in Blood by Automated count 9.0 % 3.0 - 8.0 H [facility] Eosinophils/100 leukocytes in Blood by Automated count 2.1 % 0.0 - 7.0 [facility] Basophils/100 leukocytes in Blood by Automated count 0.6 % 0.0 - 2.5 [facility] %IG 0.3 % 0.0 - 0.[address] [facility] %NRBC 0.0 % 0.0 - 0.0 [facility] Neutrophils [#/volume] in Blood by Automated count 4.18 10^3/uL 2.00 - 6.90 [facility] Lymphocytes [#/volume] in Blood by Automated count 1.38 10^3/uL 0.60 - 3.40 [facility] Monocytes [#/volume] in Blood by Automated count 0.57 10^3/uL 0.00 - 0.90 [facility] Eosinophils [#/volume] in Blood by Automated count 0.13 10^3/uL 0.00 - 0.70 [facility] Basophils [#/volume] in Blood by Automated count 0.04 10^3/uL 0.00 - 0.20 [facility] #IG 0.02 10^3/uL 0.00 - 0.10 [facility] #NRBC 0.00 10^3/uL 0.00 - 0.00 [facility] MANUAL DIFF NOT INDICATED [facility] RBC MORPH NOT INDICATED [facility] ID Date Data Source [id number] 12/23/2020 06:33:00 PM EDT [facility] Name Value Range Interpretation Code Description Data Renata rce(s) Supporting Document(s) Hemoglobin A1c/Hemoglobin.total in Blood 11.1 % 4.4 - 6.1 H [facility] {A1]{HB] ID Date Data Source [id number] 12/23/2020 06:29:00 PM EDT [facility] Name Value Range Interpretation Code Description Data Renata rce(s) Supporting Document(s) C[facility]EL [facility] L[facility] Cholesterol [Mass/volume] in Serum or Plasma 198 MG/DL 131 - 200 [facility] Deprecated Triglyceride [Mass/volume] in Serum or Plasma 246 MG/DL 3 5 - 160 H [facility] HDL 35 MG/DL 29 - 86 [facility] Cholesterol in LDL [Mass/volume] in Serum or Plasma by Direc t assay 133 mg/dL 65 - 175 [facility] Cholesterol.total/Cholesterol in HDL [Mass Ratio] in Serum o r Plasma 5.7 3.2 - 4.4 H [facility] LDL/HDL 3.80 1.47 - 3.[address] [facility] CVE RISK CHOL/HDL LDL/HDLMEN: 1/2 AVERAGE 3.43 1.00 AVERAGE 4.97 3.55 2X AVERAGE 9.55 6.25 3X AVERAGE 23.99 7.99WOMEN: 1/2 AVERAGE 3.27 1.47 AVERAGE 4.44 3.22 2X AVERAGE 7.05 5.03 3X AVERAGE 11.04 6.14 ID Date Data Source [id number] 12/23/2020 06:29:00 PM EDT [facility] Name Value Range Interpretation Code Description Data Renata rce(s) Supporting Document(s) COMPREHENSIVE METABOLIC PANEL [facility] COMPREHENSIVE METABOLIC PANEL Sodium [Moles/volume] in Serum or Plasma 138 mEq/L 134 - 153 [facility] Potassium [Moles/volume] in Serum or Plasma 4.4 mEq/L 3.6 - 5.0 [facility] Chloride [Moles/volume] in Serum or Plasma 101 mEq/L 98 - 107 [facility] Carbon dioxide, total [Moles/volume] in Serum or Plasma 27 MEQ/L 22 - 30 [facility] Glucose [Mass/volume] in Serum or Plasma 330 MG/DL 70 - 99 H [facility] BUN 9 MG/DL 7 - 21 [facility] Creatinine [Mass/volume] in Serum or Plasma 0.5 MG/DL 0.7 - 1.5 L [facility] BUN/CREAT 18 8 - 27 [facility] Protein [Mass/volume] in Serum or Plasma 7.0 G/DL 6.3 - 8.2 [facility] Albumin [Mass/volume] in Serum or Plasma 4.1 G/DL 3.9 - 5.0 [facility] Globulin [Mass/volume] in Serum by calculation 2.9 GM/DL 2.4 - 3.2 [facility] A/G RATIO 1.4 0.8 - 2.0 [facility] Calcium [Mass/volume] in Serum or Plasma 9.2 MG/DL 8.4 - 10.2 [facility] Bilirubin.total [Mass/volume] in Serum or Plasma <0.7 MG/DL 0.2 - 1.3 [facility] Alkaline phosphatase [Enzymatic activity/volume] in Serum or Plasma 104 U/L 38 - 126 [facility] Aspartate aminotransferase [Enzymatic activity/volume] in Serum or Plasma 57 U/L 5 - 40 H [facility] Alanine aminotransferase [Enzymatic activity/volume] in Seru m or Plasma 52 U/L 7 - 56 [facility] Anion gap 3 in Serum or Plasma 10.0 mmol/L 8.0 - 16.0 [facility] AGE 40 yrs [facility] NON-AA GFR >60 mL/min [facility] AFR AMER GFR >60 mL/min [facility] Male GFR In terprentation 20-49 yrs >60 mL/min Normal 50-59 yrs >56 mL/min Normal 60-69 yrs >49 mL/min Normal 70-79yrs >42 mL/min Normal 80 and above >35 mL/min Normal Female GFR Interpretation 20-39 yrs >60 mL/min Normal 40-49 yrs >58 mL/min Normal 50-59 yrs >51 mL/min Normal 60-69 yrs >45 mL/min Normal 70-79 yrs >39 mL/min Normal 80 and above >32 mL/min Normal ID Date Data Source [id number] 08/21/2020 02:24:00 PM EDT [facility] ([facility]) Name Value Range Interpretation Code Description Data Renata rce(s) Supporting Document(s) Appearance, Urine Laboratory test result Above high normal [facility] ([facility]) Color, Urine Laboratory test result Normal (applies to non -numeric results) [facility] PH,Urine 5.0 units 5.0-9.0 Normal (applies to non-numeric resul ts) [facility]) Specific [place] Urine Auto 1.012 1.002-1.035 Norm al (applies to non-numeric results) [facility] ([facility]) Glucose, Urine (Ua) Auto Laboratory test result Above high normal [facility] ([facility]) Protein, Urine Auto Laboratory test result Above high norm al [facility]) Ketone, Urine Auto Laboratory test result Normal (applies to non-numeric results) [facility] ([facility]) Urobilinogen, Urine Auto 0.2 mg/dL 0.0-2.0 Normal (applies to non-numeric results) [facility] ([facility]) Nitrite, Urine Auto Laboratory test result Marisol l (applies to non-numeric results) [facility] ([facility]) Bilirubin, Urine Auto Laboratory test result Nor mal (applies to non-numeric results) [facility] ([facility]) Blood, Urine Blood Laboratory test result Above high marisol l [facility] ([facility]) Leukocyte Esterase, Urine Auto Laboratory test result Abov e high normal [facility] ([facility]) RBC, Urine Auto 10 /HPF 0-3 Above high normal [facility] ([facility]) WBC, Urine Auto 125 /HPF 0-3 Above high normal [facility] ([facility]) Bacteria, Urine Auto Laboratory test result Above high nor mal [facility] ([facility]) Squamous Epithelial Cell Ur AU 2 /HPF 0-6 N ormal (applies to non-numeric results) [facility] ([facility]) Mucus, Urine Laboratory test result Normal (applies to non -numeric results) [facility] Hyaline Cast, Urine Auto 0 /LPF 0-1 Normal (applies to non -numeric results) [facility] ([facility]) ID Date Data Source [id number] 08/21/2020 12:59:00 PM EDT [facility] ([facility]) Name Value Range Interpretation Code Description Data Renata rce(s) Supporting Document(s) Laboratory test finding (navigational concept) Laboratory test r esult Normal (applies to non-numeric results) [facility] ([facility]) <content>QUANTITATIVE RESULT QU ALITATIVE INTERPRETATION</content>
<content> </content>
<content><5.0 IU/L NEGATIVE</content>
<content>5.0 - 25.0 IU/L INDETERMINATE</content>
<content>>25.0 IU/L POSITIVE</content>
<content></content> ID Date Data Source [id number] 08/21/2020 12:58:00 PM EDT [facility] ([facility]) Name Value Range Interpretation Code Description Data Renata rce(s) Supporting Document(s) Laboratory test finding (navigational concept) 45.0 % 3 8.0-51.0 Normal (applies to non-numeric results) [facility]) Laboratory test finding (navigational concept) 206 mg/dL 7 0-105 Above high normal [facility] ([facility]) Laboratory test finding (navigational concept) 137 meq/L 1 36-145 Normal (applies to non-numeric results) [facility] ([facility]) Laboratory test finding (navigational concept) 3.9 meq/L 3 .5-5.1 Normal (applies to non-numeric results) [facility] ([facility]) Laboratory test finding (navigational concept) 4.7 mg/dL 4 .5-5.3 Normal (applies to non-numeric results) [facility]) Laboratory test finding (navigational concept) 26.0 MM/L 2 3.0-27.0 Normal (applies to non-numeric results) [facility] ([facility]) Laboratory test finding (navigational concept) 100 meq/L 9 8-109 Normal (applies to non-numeric results) [facility] ([facility]) Laboratory test finding (navigational concept) 10 mg/dL 8 -26 Normal (applies to non-numeric results) [facility] ([facility]) Laboratory test finding (navigational concept) 0.6 mg/dL 0 .6-1.3 Normal (applies to non-numeric results) [facility] ([facility]) ID Date Data Source [id number] 08/21/2020 12:50:00 PM EDT [facility] ([facility]) Name Value Range Interpretation Code Description Data Renata rce(s) Supporting Document(s) Acetone [Mass/volume] in Serum or Plasma 1.96 mg/dL Normal (applies to non- numeric results) [facility] ([facility]) ID Date Data Source [id number] 08/21/2020 12:50:00 PM EDT [facility] ([facility]) Name Value Range Interpretation Code Description Data Renata rce(s) Supporting Document(s) Ast/Sgot 21 U/L 7-37 Normal (applies to non-numeric resul ts) [facility]) Alt/SGPT 46 U/L 12-78 Normal (applies to non-numeric resul ts) [facility]) Alkaline Phosphatase 110 U/L 45-117 Normal (applies to non-num sergio results) [facility] ([facility]) Bilirubin,Total 0.4 mg/dL 0.2-1.0 Normal (applies to non-numeric results) [facility] ([facility]) Total Protein 7.0 GM/DL 6.4-8.2 Normal (applies to non-numeric re sults) [facility] ([facility]) Bilirubin,Direct 0.2 mg/dL 0.0-0.2 Normal (applies to non-numeric results) [facility] ([facility]) Albumin/Globulin Ratio 1.1 1.2-2.2 Below low normal [facility] ([facility]) Albumin 3.6 GM/DL 3.2-5.2 Normal (applies to non-numeric resul ts) [facility] ([facility]) ID Date Data Source [id number] 08/21/2020 12:50:00 PM EDT [facility] ([facility]) Name Value Range Interpretation Code Description Data Renata rce(s) Supporting Document(s) Hemoglobin A1c 9.6 % Normal (applies to non-numeric r esults) [facility] <content>REFERENCE RANGES:</content><br/ ><content></content>
<content><=5.6% NORMAL</content>
<content>5.7-6.4% SUGGESTS IMPAIRED GLUCOSE METABOLISM/PREDIABETIC</content>
<content>>= 6.5% ABNORMAL</content>
<content></content> Estimated Average Glucose 229 mg/dL 60-110 Above high normal [facility] ([facility]) ID Date Data Source [id number] 08/21/2020 12:50:00 PM EDT [facility] Name Value Range Interpretation Code Description Data Renata rce(s) Supporting Document(s) White Blood Count 8.7 10 4.0-10.0 Normal (applies to non-numeri c results) [facility] ([facility]) Hemoglobin 14.4 g/dL 12.0-15.5 Normal (applies to non-numeric resul ts) [facility] ([facility]) Red Blood Count 5.24 10 4.00-5.40 Normal (applies to non-numeric results) [facility] ([facility]) Hematocrit 45.2 % 36.0-47.0 Normal (applies to non-numeric resul ts) [facility] ([facility]) Mean Corpuscular Volume 86.3 fl 80.0-96.0 Normal ( applies to non-numeric results) [facility] ([facility]) Mean Corpuscular HGB Conc 31.9 g/dL 32.0-36.5 Below low normal [facility] ([facility]) Mean Corpuscular Hemoglobin 27.5 pg 27.0-33.0 Norm al (applies to non-numeric results) [facility] ([facility]) Platelet Count, Automated 165 10 150-450 Normal (applies to non-numeric results) [facility] ([facility]) Red Cell Distribution Width 14.1 % 11.5-14.5 Norm al (applies to non-numeric results) [facility] ([facility]) Neutrophils % 81.7 % 36.0-66.0 Above high normal MEDE NT ([facility]) Lymph % 7.7 % 24.0-44.0 Below low normal [facility] ( [facility]) Eos % 0.0 % 0.0-3.0 Normal (applies to non-numeric resul ts) [facility] ([facility]) Panola % 9.8 % 2.0-8.0 Above high normal [facility] ([facility]) Immature Granulocyte % 0.5 % 0-3.0 Normal (applies to non-n umeric results) [facility] ([facility]) Baso % 0.3 % 0.0-1.0 Normal (applies to non-numeric resul ts) [facility] ([facility]) Neutrophils # 7.1 10 1.5-8.5 Normal (applies to non-numeric re sults) [facility] ([facility]) Nucleated Red Blood Cell % 0.0 % 0-0 Normal (applies to n on-numeric results) [facility] ([facility]) Lymph # 0.7 10 1.5-5.0 Below low normal [facility] ( [facility]) Panola # 0.9 10 0.0-0.8 Above high normal [facility] ([facility]) Eos # 0.0 10 0.0-0.5 Normal (applies to non-numeric resul ts) [facility] ([facility]) Baso # 0.0 10 0.0-0.2 Normal (applies to non-numeric resul ts) [facility] ([facility]) ID Date Data Source [id number] 08/21/2020 12:50:00 PM EDT [facility] Name Value Range Interpretation Code Description Data Renata rce(s) Supporting Document(s) Venous PH 7.395 units 7.330-7.430 Normal (applies to non-numeric res ults) [facility] ([facility]) Venous Partial Pressure Co2 40.5 mmHg 38.0-50.0 Norm al (applies to non-numeric results) [facility] ([facility]) Venous Partial Pressure O2 44.9 mmHg 30.0-50.0 Marisol l (applies to non-numeric results) [facility] ([facility]) Venous Total Co2 25.5 meq/L 24.0-28.0 Normal (applies to non-numeric results) [facility] ([facility]) Venous Hco3 24.2 meq/L 23.0-27.0 Normal (applies to non-numeric resu lts) [facility] ([facility]) Venous Standard Hco3 23.6 meq/L Normal (applies to non-num sergio results) [facility] ([facility]) Venous Base Excess -0.6 Normal (applies to non-numer ic results) [facility] ([facility]) Venous O2 Saturation 81.9 % 60.0-80.0 Above high normal [facility] ([facility]) ID Date Data Source [id number] 08/21/2020 11:45:00 AM EDT [facility] ([facility]) Name Value Range Interpretation Code Description Data Renata rce(s) Supporting Document(s) Bacteria identified in Urine by Culture Laboratory test result [facility] ([facility]) Rx Macrobid ID Date Data Source [id number] 08/21/2020 12:00:00 AM EDT [facility] Name Value Range Interpretation Code Description Data Renata rce(s) Supporting Document(s) SARS-CoV2 Rapid Antigen Negative [facility] This lab was reported by [facility]. ID Date Data Source [id number] 03/19/2020 08:00:00 AM EDT [facility] ([facility]) Name Value Range Interpretation Code Description Data Renata rce(s) Supporting Document(s) Thyrotropin [Units/volume] in Serum or Plasma 1.43 uIU/mL 0.47-5.01 [facility] ([facility]) Is patient fasting? Y ID Date Data Source [id number] 03/19/2020 08:00:00 AM EDT [facility] ([facility]) Name Value Range Interpretation Code Description Data Renata rce(s) Supporting Document(s) Cve Panel Laboratory test result [facility] ([facility]) Is patient fasting? Y Cholesterol 188 mg/dL 131-200 [facility] ([facility]) Is patient fasting? Y Triglycerides 319 mg/dL 35-160 Above high normal [facility] ([facility]) Is patient fasting? Y LDL 114 mg/dL 65-175 [facility] ([facility]) Is patient fasting? Y HDL 30 mg/dL 29-86 [facility] ([facility]) Is patient fasting? Y Risk Factor 6.3 3.2-4.4 Above high normal [facility] ([facility]) Is patient fasting? Y LDL/HDL 3.80 1.47-3.22 Above high normal [facility] ([facility]) Is patient fasting? Y ID Date Data Source [id number] 03/19/2020 08:00:00 AM EDT [facility] ([facility]) Name Value Range Interpretation Code Description Data Renata rce(s) Supporting Document(s) Hemoglobin A1c/Hemoglobin.total in Blood 10.8 % 4.4-6.1 Above high normal [facility] ([facility]) Is patient fasting? Y ID Date Data Source [id number] 03/19/2020 08:00:00 AM EDT [facility] ([facility]) Name Value Range Interpretation Code Description Data Renata rce(s) Supporting Document(s) Comprehensive Metabo Laboratory test result [facility] ([facility]) Is patient fasting? Y Potassium 4.5 meq/L 3.6-5.0 [facility] ([facility]) Is patient fasting? Y Sodium 135 meq/L 134-153 [facility] ([facility]) Is patient fasting? Y Chloride 97 meq/L 98-107 Below low normal [facility] ( [facility]) Is patient fasting? Y Co2 26 meq/L 22-30 [facility] ([facility]) Is patient fasting? Y BUN 15 mg/dL 7-21 [facility] ([facility]) Is patient fasting? Y Creatinine 0.6 mg/dL 0.7-1.5 Below low normal [facility] ( [facility]) Is patient fasting? Y Glucose 238 mg/dL 65-110 Above high normal [facility] ([facility]) Is patient fasting? Y BUN/Creat 25 8-27 [facility] ([facility]) Is patient fasting? Y Total Protein 7.4 g/dL 6.3-8.2 [facility] ([facility]) Is patient fasting? Y Albumin 4.4 g/dL 3.9-5.0 [facility] ([facility]) Is patient fasting? Y A/G Ratio 1.5 0.8-2.0 [facility] ([facility]) Is patient fasting? Y Calcium 9.6 mg/dL 8.4-10.2 [facility] ([facility]) Is patient fasting? Y Globulin 3.0 GM/DL 2.4-3.2 [facility] ([facility]) Is patient fasting? Y Total Bili Laboratory test result 0.2-1.3 [facility] ([facility]) Is patient fasting? Y Alkaline Phos 109 U/L 38-126 [facility] ([facility]) Is patient fasting? Y SGPT/Alt 60 U/L 7-56 Above high normal [facility] ([facility]) Is patient fasting? Y Sgot/Ast 45 U/L 5-40 Above high normal [facility] ([facility]) Is patient fasting? Y Anion Gap 12.0 mmol/L 8.0-16.0 [facility] ([facility]) Is patient fasting? Y Non-Aa GFR Laboratory test result [facility] ([facility]) Is patient fasting? Y Age 39 yrs [facility] ([facility]) Is patient fasting? Y Afr Amer GFR Laboratory test result [facility] ([facility]) Is patient fasting? Y ID Date Data Source [id number] 03/19/2020 08:00:00 AM EDT [facility] ([facility]) Name Value Range Interpretation Code Description Data Renata rce(s) Supporting Document(s) CBC W/Automated Diff Laboratory test result [facility] ([facility]) Is patient fasting? Y WBC 7.8 10^3/uL 4.2-11.0 [facility] ([facility]) Is patient fasting? Y RBC 5.28 10^6/uL 4.20-5.40 [facility] ([facility]) Is patient fasting? Y Hematocrit 46.3 % 37.0-47.0 [facility] ([facility]) Is patient fasting? Y Hemoglobin 14.3 g/dL 12.0-16.0 [facility] ([facility]) Is patient fasting? Y MCV 87.7 fL 81.0-101 [facility] ([facility]) Is patient fasting? Y MCH 27.1 pg 27.0-34.0 [facility] ([facility]) Is patient fasting? Y MCHC 30.9 g/dL 31.0-36.0 Below low normal [facility] ( [facility]) Is patient fasting? Y RDW 14.6 % 11.5-14.5 Above high normal [facility] ([facility]) Is patient fasting? Y MPV 13.4 fL 7.4-10.4 Above high normal [facility] ([facility]) Is patient fasting? Y Platelets 183 10^3/uL 150-450 [facility] ([facility]) Is patient fasting? Y Panola 8.2 % 3.0-8.0 Above high normal [facility] ([facility]) Is patient fasting? Y Lymph 25.5 % 25.0-40.0 [facility] ([facility]) Is patient fasting? Y Neut 62.9 % 37.0-80.0 [facility] ([facility]) Is patient fasting? Y Eos 2.4 % 0.0-7.0 [facility] ([facility]) Is patient fasting? Y Baso 0.6 % 0.0-2.5 [facility] ([facility]) Is patient fasting? Y %Ig 0.4 % 0.0-0.0 Above high normal [facility] ([facility]) Is patient fasting? Y %NRBC 0.0 % 0.0-0.0 [facility] ([facility]) Is patient fasting? Y #Neut 4.89 10^3/uL 2.00-6.90 [facility] ([facility]) Is patient fasting? Y #Lymph 1.99 10^3/uL 0.60-3.40 [facility] ([facility]) Is patient fasting? Y #Eos 0.19 10^3/uL 0.00-0.70 [facility] ([facility]) Is patient fasting? Y #Panola 0.64 10^3/uL 0.00-0.90 [facility] ([facility]) Is patient fasting? Y #Ig 0.03 10^3/uL 0.00-0.10 [facility] ([facility]) Is patient fasting? Y #NRBC 0.00 10^3/uL 0.00-0.00 [facility] ([facility]) Is patient fasting? Y #Baso 0.05 10^3/uL 0.00-0.20 [facility] ([facility]) Is patient fasting? Y Manual Diff Laboratory test result M [facility] ([facility]) Is patient fasting? Y RBC Morph Laboratory test result [facility] ([facility]) Is patient fasting? Y Aniso Laboratory test result Abnormal (applies to non -numeric results) [facility] ([facility]) Is patient fasting? Y PLT Est Laboratory test result [facility] ([facility]) Is patient fasting? Y ID Date Data Source [id number] 03/19/2020 05:18:00 PM EDT [facility] Name Value Range Interpretation Code Description Data Renata rce(s) Supporting Document(s) [facility] Cholesterol [Mass/volume] in Serum or Plasma 188 MG/DL 131 - 200 [facility] Deprecated Triglyceride [Mass/volume] in Serum or Plasma 319 MG/DL 3 5 - 160 H [facility] HDL 30 MG/DL 29 - 86 [facility] Cholesterol in LDL [Mass/volume] in Serum or Plasma by Direc t assay 114 mg/dL 65 - 175 [facility] Cholesterol.total/Cholesterol in HDL [Mass Ratio] in Serum o r Plasma 6.3 3.2 - 4.4 H [facility] LDL/HDL 3.80 1.47 - 3.[address] [facility] CVE RISK CHOL/HDL LDL/HDLMEN: 1/2 AVERAGE 3.43 1.00 AVERAGE 4.97 3.55 2X AVERAGE 9.55 6.25 3X AVERAGE 23.99 7.99WOMEN: 1/2 AVERAGE 3.27 1.47 AVERAGE 4.44 3.22 2X AVERAGE 7.05 5.03 3X AVERAGE 11.04 6.14 ID Date Data Source [id number] 03/19/2020 05:10:00 PM EDT [facility] Name Value Range Interpretation Code Description Data Renata rce(s) Supporting Document(s) Thyrotropin [Units/volume] in Serum or Plasma by Detec tion limit <= 0.05 mIU/L 1.43 uIU/mL 0.47 - 5.01 [facility] ID Date Data Source [id number] 03/19/2020 05:06:00 PM EDT [facility] Name Value Range Interpretation Code Description Data Renata rce(s) Supporting Document(s) CBC W/AUTOMATED DIFF [facility] COMPLETE BLOOD COUNT Leukocytes [#/volume] in Blood by Automated count 7.8 10^3/uL 4.2 - 1 1.0 [facility] Erythrocytes [#/volume] in Blood by Automated count 5.28 10^6/uL 4. 20 - 5.40 [facility] Hemoglobin [Mass/volume] in Blood 14.3 g/dL 12.0 - 16.0 [facility] Hematocrit [Volume Fraction] of Blood by Automated count 46.3 % 3 7.0 - 47.0 [facility] Erythrocyte mean corpuscular volume [Entitic volume] by Auto mated count 87.7 fL 81.0 - 101 [facility] Erythrocyte mean corpuscular hemoglobin [Entitic mass] by Automated count 27.1 pg 27.0 - 34.0 [facility] Erythrocyte mean corpuscular hemoglobin concentration [Mass/volume] by Automated count 30.9 g/dL 31.0 - 36.0 L [facility] Erythrocyte distribution width [Ratio] by Automated count 14.6 % 11.5 - 14.5 H [facility] Platelets [#/volume] in Blood by Automated count 183 10^3/uL 150 - 45 0 [facility] Platelet mean volume [Entitic volume] in Blood by Automated count 13.4 fL 7.4 - 10.4 H [facility] Neutrophils/100 leukocytes in Blood by Automated count 62.9 % 37. 0 - 80.0 [facility] Lymphocytes/100 leukocytes in Blood by Manual count 25.5 % 25.0 - 40.0 [facility] Monocytes/100 leukocytes in Blood by Automated count 8.2 % 3.0 - 8.0 H [facility] Eosinophils/100 leukocytes in Blood by Automated count 2.4 % 0.0 - 7.0 [facility] Basophils/100 leukocytes in Blood by Automated count 0.6 % 0.0 - 2.5 [facility] %IG 0.4 % 0.0 - 0.[address] [facility] %NRBC 0.0 % 0.0 - 0.0 [facility] al Neutrophils [#/volume] in Blood by Automated count 4.89 10^3/uL 2.00 - 6.90 [facility] Lymphocytes [#/volume] in Blood by Automated count 1.99 10^3/uL 0.60 - 3.40 [facility] Monocytes [#/volume] in Blood by Automated count 0.64 10^3/uL 0.00 - 0.90 [facility] Eosinophils [#/volume] in Blood by Automated count 0.19 10^3/uL 0.00 - 0.70 [facility] Basophils [#/volume] in Blood by Automated count 0.05 10^3/uL 0.00 - 0.20 [facility] #IG 0.03 10^3/uL 0.00 - 0.10 [facility]ital #NRBC 0.00 10^3/uL 0.00 - 0.00 [facility] ospital MANUAL DIFF NOT INDICATED [facility] RBC MORPH SEE BELOW [facility] Anisocytosis [Presence] in Blood by Light microscopy 1+ MARISOL L: NONE SEEN A [facility] { SICKLE CELL (NORMAL: NONE SEEN ) Platelet adequacy [Presence] in Blood by Light microscopy NORMAL NORMAL: NORMAL [facility] COMMENT: _[email or web address] ED. 03/19/20.TAD. _0 03/19/20.TAD. _0 03/19/20.TAD. ID Date Data Source [id number] 03/19/2020 04:58:00 PM EDT [facility] Name Value Range Interpretation Code Description Data Renata rce(s) Supporting Document(s) COMPREHENSIVE METABOLIC PANEL [facility] COMPREHENSIVE METABOLIC PANEL Sodium [Moles/volume] in Serum or Plasma 135 mEq/L 134 - 153 [facility] Potassium [Moles/volume] in Serum or Plasma 4.5 mEq/L 3.6 - 5.0 [facility] Chloride [Moles/volume] in Serum or Plasma 97 mEq/L 98 - 107 L [facility] Carbon dioxide, total [Moles/volume] in Serum or Plasma 26 MEQ/L 22 - 30 [facility] Glucose [Mass/volume] in Serum or Plasma 238 MG/DL 65 - 110 H [facility] BUN 15 MG/DL 7 - 21 [facility] Creatinine [Mass/volume] in Serum or Plasma 0.6 MG/DL 0.7 - 1.5 L [facility] BUN/CREAT 25 8 - 27 [facility] Protein [Mass/volume] in Serum or Plasma 7.4 G/DL 6.3 - 8.2 [facility] Albumin [Mass/volume] in Serum or Plasma 4.4 G/DL 3.9 - 5.0 [facility] Globulin [Mass/volume] in Serum by calculation 3.0 GM/DL 2.4 - 3.2 [facility] A/G RATIO 1.5 0.8 - 2.0 [facility] Calcium [Mass/volume] in Serum or Plasma 9.6 MG/DL 8.4 - 10.2 [facility] Bilirubin.total [Mass/volume] in Serum or Plasma <0.7 MG/DL 0.2 - 1.3 [facility] Alkaline phosphatase [Enzymatic activity/volume] in Serum or Plasma 109 U/L 38 - 126 [facility] Aspartate aminotransferase [Enzymatic activity/volume] in Serum or Plasma 45 U/L 5 - 40 H [facility] Alanine aminotransferase [Enzymatic activity/volume] in Seru m or Plasma 60 U/L 7 - 56 H [facility] Anion gap 3 in Serum or Plasma 12.0 mmol/L 8.0 - 16.0 [facility] AGE 39 yrs [facility] NON-AA GFR >60 mL/min [facility] AFR AMER GFR >60 mL/min [facility] sp[facility] Male GFR In terprentation 20-49 yrs >60 mL/min Normal 50-59 yrs >56 mL/min Normal 60-69 yrs >49 mL/min Normal 70-79yrs >42 mL/min Normal 80 and above >35 mL/min Normal Female GFR Interpretation 20-39 yrs >60 mL/min Normal 40-49 yrs >58 mL/min Normal 50-59 yrs >51 mL/min Normal 60-69 yrs >45 mL/min Normal 70-79 yrs >39 mL/min Normal 80 and above >32 mL/min Normal ID Date Data Source [id number] 03/19/2020 04:46:00 PM EDT [facility] Name Value Range Interpretation Code Description Data Renata rce(s) Supporting Document(s) Hemoglobin A1c/Hemoglobin.total in Blood 10.8 % 4.4 - 6.1 H [facility] {A1]{HB] Procedure Social History Code Duration Value Status Description Data Source(s ) Smoking 08/21/2020 12:00:00 AM EDT Patient has never smoked co mpleted Patient has never smoked [facility] ([facility]) Vital Signs ID Date Data Source UNK Name Value Range Interpretation Code Description Data Source(s) Systolic blood pressure 138 mm[Hg] 138 mm[Hg] M [facility] ([facility]) Diastolic blood pressure 80 mm[Hg] 80 mm[Hg] [facility] ([facility]) Heart rate 98 /min 98 /min [facility] Body temperature 97.1 [degF] 97.1 [degF] [facility] ([facility]) Respiratory rate 16 /min 16 /min [facility] ( [facility]) Oxygen saturation in Arterial blood by Pulse oximetry 98 % 98 % [facility] ([facility]) Body weight 273.38 [lb_av] 273.38 [lb_av] [facility] T ([facility]) Body weight 124.003 kg 124.003 kg [facility] ([facility]) Body height 71 [in_i] 71 [in_i] [facility] ([facility]) 5'11" Body mass index (BMI) [Ratio] 38.1 kg/m2 38.1 k g/m2 [facility] ([facility]) Body surface area Derived from formula 2.41 m2 2.41 m2 [facility] ([facility]) Oxygen saturation in Arterial blood by Pulse oximetry 96 % 96 % [facility] ([facility], [facility]) Systolic blood pressure 113 mm[Hg] 113 mm[Hg] M [facility] ([facility]) Sitting Diastolic blood pressure 82 mm[Hg] 82 mm[Hg] [facility]) Sitting Heart rate 145 /min 145 /min [facility] ([facility]) Oxygen saturation in Arterial blood by Pulse oximetry 97 % 97 % [facility] ([facility]) Systolic blood pressure 110 mm[Hg] 110 mm[Hg] M [facility] ([facility], [facility]) Standing Diastolic blood pressure 72 mm[Hg] 72 mm[Hg] [facility] ([facility], [facility]) Standing Heart rate 142 /min 142 /min [facility] ([facility], [facility]) Body temperature 97.1 [degF] 97.1 [degF] [facility] ([facility] ) Body height 70 [in_i] 70 [in_i] [facility] ([facility] ) 5'10" Body weight 286.50 [lb_av] 286.50 [lb_av] [facility] T ([facility] ) Body mass index (BMI) [Ratio] 41.1 kg/m2 41.1 k g/m2 [facility] ([facility] ) Systolic blood pressure 128 mm[Hg] 128 mm[Hg] M [facility] ([facility]) Diastolic blood pressure 72 mm[Hg] 72 mm[Hg] [facility] ([facility]) Heart rate 86 /min 86 /min [facility] ([facility]) Body temperature 97.3 [degF] 97.3 [degF] [facility] ([facility]) Respiratory rate 18 /min 18 /min [facility] ( [facility]) Oxygen saturation in Arterial blood by Pulse oximetry 98 % 98 % [facility] ([facility]) Body weight 283.50 [lb_av] 283.50 [lb_av] [facility] T ([facility]) Body weight 128.596 kg 128.596 kg [facility] ([facility]) Body height 71 [in_i] 71 [in_i] [facility] ([facility]) 5'11" Body mass index (BMI) [Ratio] 39.5 kg/m2 39.5 k [facility] Body surface area Derived from formula 2.45 m2 2.45 m2 [facility] ([facility]) Body mass index (BMI) [Ratio] 40.3 kg/m2 40.3 k g/m2 [facility] ([facility]) Body surface area Derived from formula 2.47 m2 2.47 m2 [facility] ([facility]) Systolic blood pressure 124 mm[Hg] 124 mm[Hg] M [facility] ([facility]) Diastolic blood pressure 76 mm[Hg] 76 mm[Hg] [facility] ([facility]) Heart rate 95 /min 95 /min [facility] ([facility]) Body temperature 98.1 [degF] 98.1 [degF] [facility] ([facility]) Oxygen saturation in Arterial blood by Pulse oximetry 98 % 98 % [facility] ([facility]) Body weight 289.00 [lb_av] 289.00 [lb_av] [facility] ([facility]) Body weight 131.090 kg 131.090 kg [facility] Body height 71 [in_i] 71 [in_i] [facility] ([facility]) 5'11"
[2021-04-09] MEDS ORDERED: PIOG1TAB37 (12:24)
[2021-04-09 13:15] LABS: BASO # 0.1 10^3/uL (0.0-0.2); BASO % 0.4 % (0.0-1.0); EOS # 0.2 10^3/uL (0.0-0.5); EOS % 1.6 % (0.0-3.0); HEMATOCRIT 42.5 % (36.0-47.0); HEMOGLOBIN 13.1 g/dl (12.0-15.5); LYMPH % 25.6 % (24.0-44.0); MEAN CORPUSCULAR HEMOGLOBIN 27.8 pg (27.0-33.0); MEAN CORPUSCULAR HGB CONC 30.8 g/dl (32.0-36.5); MEAN CORPUSCULAR VOLUME 90.2 fl (80.0-96.0); MONO # 1.2 10^3/uL (0.0-0.8); NEUTROPHILS # 7.3 10^3/uL (1.5-8.5); NEUTROPHILS % 61.9 % (36.0-66.0); PLATELET COUNT, AUTOMATED 253 10^3/uL (150-450); RED BLOOD COUNT 4.71 10^6/uL (4.00-5.40); WHITE BLOOD COUNT 11.8 10^3/uL (4.0-10.0)
[2021-04-09 13:43] LABS: BLOOD UREA NITROGEN 14 MG/DL (7-18); CALCIUM LEVEL 9.3 MG/DL (8.5-10.1); CARBON DIOXIDE LEVEL 28 MEQ/L (21-32); CHLORIDE LEVEL 108 MEQ/L (98-107); GLOMERULAR FILTRATION RATE > 60.0 (>58); GLUCOSE, FASTING 55 MG/DL (70-100); POTASSIUM SERUM 4.2 MEQ/L (3.5-5.1); SODIUM LEVEL 139 MEQ/L (136-145)
[2021-04-09 13:45] LABS: ERYTHROCYTE SEDIMENTATION RATE 40 mm/hr (0-20)
--- NOTE | 2021-04-09 17:17 | REP ---
INDICATION: swelling COMPARISON: None. TECHNIQUE: Real time compression and duplex Doppler interrogation of the right lower extremity deep venous system is performed, including the left common femoral vein.Compression of the right peroneal and posterior tibial veins is performed. FINDINGS: The right common femoral, superficial femoral and popliteal veins are fully compressible with transducer pressure and demonstrate normal spontaneous and phasic flow, without evidence of deep venous thrombosis.The left common femoral vein demonstrates no thrombus.The right peroneal and posterior tibial veins are not visualized due to soft tissue edema.. IMPRESSION: No evidence of deep venous thrombosis of the right lower extremity femoral popliteal venous system. <Electronically signed by Serafin Bush > 04/09/21 [id number]
[2021-04-09] MEDS ORDERED: LEVO250T12 PO ×2 (17:43→17:45)
[2021-04-09 18:01] VITALS: BP 135/75
== END 2021-04-09 18:28 | disposition home or self-care (01) ==
LOC: M ED 11:40
DX: E11.621 Type 2 diabetes mellitus with foot ulcer (principal); L97.419 Non-pressure chronic ulcer of right heel and midfoot with unspecified severity; D64.9 Anemia, unspecified; L03.90 Cellulitis, unspecified; Z79.4 Long term (current) use of insulin; Z79.899 Other long term (current) drug therapy

== ENCOUNTER 2021-05-26 21:24 | Inpatient (IN) | payer OTHER ==
[~2021-05-26] VITALS: Ht 180.3 cm; Wt 130.3 kg
[~2021-05-26 21:24] MED LIST changes: -CEFD1CAP8 PO; +CEFD300C41 PO; +HUMU500S2 SC; -HUMU500S2 SQ; +LEVO250T3 PO; +PIOG1TAB37
[2021-05-26] MEDS ORDERED: NS 1,000 ML IV ONE ×2 (21:40→23:20)
[2021-05-26] MEDS ORDERED: IBUPROFEN 600MG TAB PO ONE (21:40)
[2021-05-26] MEDS ORDERED: ACETAMINOPHEN 325 MG TAB PO ONE (21:40)
[2021-05-26 22:32] LABS: BASO % 0.4 % (0.0-1.0); EOS % 0.3 % (0.0-3.0); HEMATOCRIT 40.1 % (36.0-47.0); HEMOGLOBIN 12.8 g/dl (12.0-15.5); LYMPH # 0.4 10^3/uL (1.5-5.0); MEAN CORPUSCULAR HEMOGLOBIN 27.4 pg (27.0-33.0); MEAN CORPUSCULAR HGB CONC 31.9 g/dl (32.0-36.5); MEAN CORPUSCULAR VOLUME 85.7 fl (80.0-96.0); MONO # 0.8 10^3/uL (0.0-0.8); MONO % 7.6 % (2.0-8.0); NEUTROPHILS # 9.4 10^3/uL (1.5-8.5); NEUTROPHILS % 86.9 % (36.0-66.0); PLATELET COUNT, AUTOMATED 155 10^3/uL (150-450); RED BLOOD COUNT 4.68 10^6/uL (4.00-5.40); WHITE BLOOD COUNT 10.9 10^3/uL (4.0-10.0)
[2021-05-26] MEDS ORDERED: VANCOMYCIN HCL 1,000 MG, VIAL MATE ADAPTER 1 EACH in NS 250 ML IV SCH (22:40)
[2021-05-26 22:56] LABS: ALBUMIN 3.2 GM/DL (3.2-5.2); ALT/SGPT 36 U/L (12-78); BILIRUBIN,DIRECT 0.5 MG/DL (0.0-0.2); BLOOD UREA NITROGEN 12 MG/DL (7-18); CALCIUM LEVEL 8.5 MG/DL (8.5-10.1); CARBON DIOXIDE LEVEL 25 MEQ/L (21-32); CHLORIDE LEVEL 100 MEQ/L (98-107); CREATININE FOR GFR 0.74 MG/DL (0.55-1.30); GLOMERULAR FILTRATION RATE > 60.0 (>58); GLUCOSE, FASTING 225 MG/DL (70-100); POTASSIUM SERUM 3.9 MEQ/L (3.5-5.1); SODIUM LEVEL 134 MEQ/L (136-145); TOTAL PROTEIN 7.4 GM/DL (6.4-8.2)
[2021-05-26] MEDS ORDERED: VANCOMYCIN HCL 1,000 MG, VIAL MATE ADAPTER 1 EACH in NS 250 ML IV ONE ×6 (23:00)
[2021-05-26 23:20] LABS: RSV AMPLIFICATION NEGATIVE (NEGATIVE)
[2021-05-27] MEDS ORDERED: JARD1TAB3 PO (00:18)
[2021-05-27] MEDS ORDERED: ACTO30TA15 PO (00:18)
[2021-05-27] MEDS ORDERED: GLUCAGON INJ 1MG VIAL SC PRN (00:20)
[2021-05-27] MEDS ORDERED: DEXTROSE 50% 50 ML SYRINGE IV PRN (00:20)
[2021-05-27] MEDS ORDERED: GLUCOSE 4GM CHEW TABLET PO PRN (00:20)
[2021-05-27] MEDS ORDERED: HOME MED LIST COMPLETE! XX SCH (00:25)
[2021-05-27] MEDS ORDERED: NS 1,000 ML IV SCH (00:30)
[2021-05-27] MEDS ORDERED: PIPERACILLIN/TAZOBACTAM SOD 3.375 GM in D5W MINI-BAG PLUS 50 ML IV SCH (01:00)
[2021-05-27] MEDS ORDERED: VANCOMYCIN HCL 750 MG, VIAL MATE ADAPTER 1 EACH in NS 250 ML IV SCH (01:15)
[2021-05-27] MEDS: HumaLOG INSULIN (NovoLOG) PER UNIT SC SCH ×5 (01:17→21:00)
[2021-05-27] MEDS ORDERED: VANCOMYCIN HCL 1,000 MG, VIAL MATE ADAPTER 1 EACH in NS 250 ML IV ONE ×2 (01:30→02:30)
[2021-05-27 02:46] LABS: ERYTHROCYTE SEDIMENTATION RATE 64 mm/hr (0-20)
[2021-05-27] MEDS: LEVEMIR (INSULIN DETEMIR) 1 UNITS/0.01ML SC SCH ×3 (03:10→22:15)
[2021-05-27] MEDS: PIPERACILLIN/TAZOBACTAM SOD 3.375 GM in D5W MINI-BAG PLUS 50 ML IV SCH ×4 (03:11→22:14)
[2021-05-27] MEDS: NS 1,000 ML IV SCH ×3 (06:04→22:16)
[2021-05-27] MEDS: HEPARIN SOD (PORCINE) 5000UNITS/ML 1ML VIAL/SYRINGE SC SCH ×3 (06:05→22:16)
[2021-05-27 08:00] VITALS: BP 166/92
[2021-05-27] MEDS: VANCOMYCIN HCL 750 MG, VIAL MATE ADAPTER 1 EACH in NS 250 ML IV SCH ×2 (09:27→16:08)
[2021-05-27] MEDS: VANCOMYCIN HCL 500 MG in D5W MINI-BAG PLUS 100 ML IV SCH ×2 (09:28→17:09)
[2021-05-27] MEDS: ACETAMINOPHEN TAB 650MG DOSE (2X325MG) PO PRN (13:38)
[2021-05-27 14:00] VITALS: BP 169/90
[2021-05-27] MEDS ORDERED: ONDANSETRON 4MG/2ML VIAL IV PRN (14:05)
[2021-05-27 14:58] LABS: BASO % 0.2 % (0.0-1.0); EOS % 0.3 % (0.0-3.0); HEMATOCRIT 34.2 % (36.0-47.0); LYMPH # 0.6 10^3/uL (1.5-5.0); LYMPH % 9.5 % (24.0-44.0); MEAN CORPUSCULAR HEMOGLOBIN 27.6 pg (27.0-33.0); MEAN CORPUSCULAR HGB CONC 32.2 g/dl (32.0-36.5); MEAN CORPUSCULAR VOLUME 85.7 fl (80.0-96.0); MONO # 0.7 10^3/uL (0.0-0.8); MONO % 11.4 % (2.0-8.0); NEUTROPHILS # 4.9 10^3/uL (1.5-8.5); NEUTROPHILS % 77.8 % (36.0-66.0); PLATELET COUNT, AUTOMATED 137 10^3/uL (150-450); RED BLOOD COUNT 3.99 10^6/uL (4.00-5.40); WHITE BLOOD COUNT 6.2 10^3/uL (4.0-10.0)
[2021-05-27 15:22] LABS: ALBUMIN 2.6 GM/DL (3.2-5.2); ALT/SGPT 46 U/L (12-78); BILIRUBIN,TOTAL 1.2 MG/DL (0.2-1.0); BLOOD UREA NITROGEN 11 MG/DL (7-18); CARBON DIOXIDE LEVEL 26 MEQ/L (21-32); CHLORIDE LEVEL 104 MEQ/L (98-107); CREATININE FOR GFR 0.55 MG/DL (0.55-1.30); GLOMERULAR FILTRATION RATE > 60.0 (>58); GLUCOSE, FASTING 186 MG/DL (70-100); POTASSIUM SERUM 3.9 MEQ/L (3.5-5.1); SODIUM LEVEL 135 MEQ/L (136-145); TOTAL PROTEIN 6.2 GM/DL (6.4-8.2)
[2021-05-27] MEDS ORDERED: EMLA CREAM 5GM TUBE (LIDOCAINE/PRILOCAINE) TOP ONE (18:05)
[2021-05-27] MEDS ORDERED: EMLA CREAM 5GM TUBE (LIDOCAINE/PRILOCAINE) TOP SCH (18:05)
[2021-05-27] MEDS ORDERED: PERCOCET 5MG/325MG TAB PO ONE (18:25)
[2021-05-27] MEDS: SILVER SULFADIAZINE 1% CR 50 GM JAR TOP SCH (21:00)
[2021-05-27 22:00] VITALS: BP 135/75
[2021-05-27] MEDS: PERCOCET 5MG/325MG TAB PO PRN (22:15)
[2021-05-28] MEDS: VANCOMYCIN HCL 750 MG, VIAL MATE ADAPTER 1 EACH in NS 250 ML IV SCH ×6 (00:20→17:20)
[2021-05-28] MEDS: PIPERACILLIN/TAZOBACTAM SOD 3.375 GM in D5W MINI-BAG PLUS 50 ML IV SCH ×4 (04:24→21:10)
[2021-05-28 06:00] VITALS: BP 138/76
[2021-05-28] MEDS: PERCOCET 5MG/325MG TAB PO PRN ×3 (06:22→18:28)
[2021-05-28] MEDS: HEPARIN SOD (PORCINE) 5000UNITS/ML 1ML VIAL/SYRINGE SC SCH ×3 (06:23→21:09)
[2021-05-28 06:46] LABS: BLOOD UREA NITROGEN 10 MG/DL (7-18); CALCIUM LEVEL 8.1 MG/DL (8.5-10.1); CARBON DIOXIDE LEVEL 29 MEQ/L (21-32); CHLORIDE LEVEL 106 MEQ/L (98-107); CREATININE FOR GFR 0.55 MG/DL (0.55-1.30); GLOMERULAR FILTRATION RATE > 60.0 (>58); GLUCOSE, FASTING 161 MG/DL (70-100); POTASSIUM SERUM 3.7 MEQ/L (3.5-5.1); SODIUM LEVEL 140 MEQ/L (136-145)
[2021-05-28 08:19] LABS: BASO % 0.2 % (0.0-1.0); EOS # 0.1 10^3/uL (0.0-0.5); EOS % 2.9 % (0.0-3.0); HEMATOCRIT 34.1 % (36.0-47.0); HEMOGLOBIN 10.9 g/dl (12.0-15.5); LYMPH # 0.7 10^3/uL (1.5-5.0); LYMPH % 15.5 % (24.0-44.0); MEAN CORPUSCULAR HEMOGLOBIN 28.1 pg (27.0-33.0); MEAN CORPUSCULAR VOLUME 87.9 fl (80.0-96.0); MONO # 0.7 10^3/uL (0.0-0.8); MONO % 14.8 % (2.0-8.0); NEUTROPHILS # 2.9 10^3/uL (1.5-8.5); NEUTROPHILS % 65.9 % (36.0-66.0); PLATELET COUNT, AUTOMATED 129 10^3/uL (150-450); RED BLOOD COUNT 3.88 10^6/uL (4.00-5.40); WHITE BLOOD COUNT 4.5 10^3/uL (4.0-10.0)
[2021-05-28 08:19] LABS: ALBUMIN 2.5 GM/DL (3.2-5.2); ALT/SGPT 47 U/L (12-78); BILIRUBIN,TOTAL 1.1 MG/DL (0.2-1.0); MAGNESIUM LEVEL 2.1 MG/DL (1.8-2.4); TOTAL PROTEIN 6.2 GM/DL (6.4-8.2)
[2021-05-28] MEDS: NS 1,000 ML IV SCH ×3 (08:51→21:10)
[2021-05-28] MEDS: HumaLOG INSULIN (NovoLOG) PER UNIT SC SCH ×4 (08:52→21:00)
[2021-05-28] MEDS: LEVEMIR (INSULIN DETEMIR) 1 UNITS/0.01ML SC SCH ×2 (08:53→21:09)
[2021-05-28] MEDS: SILVER SULFADIAZINE 1% CR 50 GM JAR TOP SCH ×2 (08:53→21:09)
[2021-05-28] MEDS ORDERED: LIDOCAINE 1% MDV 20ML VIAL As Ordered ONE (13:58)
[2021-05-28 22:00] VITALS: BP 130/75
[2021-05-29] MEDS: VANCOMYCIN HCL 750 MG, VIAL MATE ADAPTER 1 EACH in NS 250 ML IV SCH ×3 (00:14→09:04)
[2021-05-29] MEDS: SODIUM CHLORIDE 0.9% INJ 10 ML SYR IV SCH ×2 (03:23→16:57)
[2021-05-29] MEDS: PIPERACILLIN/TAZOBACTAM SOD 3.375 GM in D5W MINI-BAG PLUS 50 ML IV SCH ×4 (03:41→21:09)
[2021-05-29] MEDS: ACETAMINOPHEN TAB 650MG DOSE (2X325MG) PO PRN (03:54)
[2021-05-29] MEDS: HEPARIN SOD (PORCINE) 5000UNITS/ML 1ML VIAL/SYRINGE SC SCH ×3 (05:22→21:08)
[2021-05-29 06:00] VITALS: BP 157/80
[2021-05-29 06:16] LABS: BASO % 0.5 % (0.0-1.0); EOS # 0.2 10^3/uL (0.0-0.5); EOS % 3.8 % (0.0-3.0); HEMATOCRIT 32.9 % (36.0-47.0); HEMOGLOBIN 10.4 g/dl (12.0-15.5); LYMPH # 0.9 10^3/uL (1.5-5.0); LYMPH % 20.2 % (24.0-44.0); MEAN CORPUSCULAR HEMOGLOBIN 27.6 pg (27.0-33.0); MEAN CORPUSCULAR HGB CONC 31.6 g/dl (32.0-36.5); MEAN CORPUSCULAR VOLUME 87.3 fl (80.0-96.0); MONO # 0.6 10^3/uL (0.0-0.8); MONO % 14.5 % (2.0-8.0); NEUTROPHILS # 2.5 10^3/uL (1.5-8.5); PLATELET COUNT, AUTOMATED 121 10^3/uL (150-450); RED BLOOD COUNT 3.77 10^6/uL (4.00-5.40); WHITE BLOOD COUNT 4.2 10^3/uL (4.0-10.0)
[2021-05-29 06:46] LABS: ALBUMIN 2.4 GM/DL (3.2-5.2); ALT/SGPT 45 U/L (12-78); BILIRUBIN,TOTAL 0.9 MG/DL (0.2-1.0); BLOOD UREA NITROGEN 8 MG/DL (7-18); CARBON DIOXIDE LEVEL 28 MEQ/L (21-32); CHLORIDE LEVEL 106 MEQ/L (98-107); CREATININE FOR GFR 0.44 MG/DL (0.55-1.30); GLOMERULAR FILTRATION RATE > 60.0 (>58); GLUCOSE, FASTING 147 MG/DL (70-100); MAGNESIUM LEVEL 1.9 MG/DL (1.8-2.4); POTASSIUM SERUM 3.6 MEQ/L (3.5-5.1); SODIUM LEVEL 140 MEQ/L (136-145); TOTAL PROTEIN 5.8 GM/DL (6.4-8.2)
[2021-05-29] MEDS: HumaLOG INSULIN (NovoLOG) PER UNIT SC SCH ×4 (07:30→21:00)
[2021-05-29 07:49] LABS: C REACTIVE PROTEIN QUANTITATIV 5.99 MG/DL (0.00-0.30)
[2021-05-29 08:18] LABS: ERYTHROCYTE SEDIMENTATION RATE 51 mm/hr (0-20)
[2021-05-29] MEDS: LEVEMIR (INSULIN DETEMIR) 1 UNITS/0.01ML SC SCH ×2 (09:04→21:07)
[2021-05-29] MEDS: SILVER SULFADIAZINE 1% CR 50 GM JAR TOP SCH ×2 (12:07→21:08)
[2021-05-29 14:00] VITALS: BP 158/88
[2021-05-29] MEDS: PERCOCET 5MG/325MG TAB PO PRN (21:09)
[2021-05-29] MEDS: SODIUM CHLORIDE 0.9% INJ 10 ML SYR IV PRN (22:08)
[2021-05-30] MEDS: PIPERACILLIN/TAZOBACTAM SOD 3.375 GM in D5W MINI-BAG PLUS 50 ML IV SCH ×4 (05:03→22:38)
[2021-05-30] MEDS: SODIUM CHLORIDE 0.9% INJ 10 ML SYR IV SCH ×2 (05:03→17:50)
[2021-05-30] MEDS: HEPARIN SOD (PORCINE) 5000UNITS/ML 1ML VIAL/SYRINGE SC SCH ×3 (05:52→22:38)
[2021-05-30 06:00] VITALS: BP 142/80
[2021-05-30 07:58] LABS: BLOOD UREA NITROGEN 6 MG/DL (7-18); CALCIUM LEVEL 8.7 MG/DL (8.5-10.1); CARBON DIOXIDE LEVEL 30 MEQ/L (21-32); CHLORIDE LEVEL 104 MEQ/L (98-107); CREATININE FOR GFR 0.47 MG/DL (0.55-1.30); GLOMERULAR FILTRATION RATE > 60.0 (>58); GLUCOSE, FASTING 149 MG/DL (70-100); POTASSIUM SERUM 3.4 MEQ/L (3.5-5.1); SODIUM LEVEL 140 MEQ/L (136-145)
[2021-05-30 08:19] LABS: BASO # 0.1 10^3/uL (0.0-0.2); EOS # 0.2 10^3/uL (0.0-0.5); EOS % 4.1 % (0.0-3.0); HEMATOCRIT 35.5 % (36.0-47.0); LYMPH # 1.4 10^3/uL (1.5-5.0); LYMPH % 27.4 % (24.0-44.0); MEAN CORPUSCULAR HEMOGLOBIN 26.7 pg (27.0-33.0); MEAN CORPUSCULAR VOLUME 86.2 fl (80.0-96.0); MONO # 0.5 10^3/uL (0.0-0.8); MONO % 10.8 % (2.0-8.0); NEUTROPHILS # 2.7 10^3/uL (1.5-8.5); NEUTROPHILS % 53.9 % (36.0-66.0); PLATELET COUNT, AUTOMATED 188 10^3/uL (150-450); RED BLOOD COUNT 4.12 10^6/uL (4.00-5.40); WHITE BLOOD COUNT 4.9 10^3/uL (4.0-10.0)
[2021-05-30] MEDS: SILVER SULFADIAZINE 1% CR 50 GM JAR TOP SCH ×2 (08:41→20:44)
[2021-05-30] MEDS: HumaLOG INSULIN (NovoLOG) PER UNIT SC SCH ×4 (08:42→20:33)
[2021-05-30] MEDS: LEVEMIR (INSULIN DETEMIR) 1 UNITS/0.01ML SC SCH ×2 (08:42→20:43)
[2021-05-30] MEDS: PERCOCET 5MG/325MG TAB PO PRN ×2 (10:04→22:40)
[2021-05-30] MEDS: SODIUM CHLORIDE 0.9% INJ 10 ML SYR IV PRN ×2 (11:11→23:33)
[2021-05-30 14:00] VITALS: BP 120/72
[2021-05-30] MEDS ORDERED: POTASSIUM CHLORIDE 10MEQ SR TABLET PO ONE (20:00)
[2021-05-30 21:56] VITALS: BP 127/89
[2021-05-31] MEDS: PIPERACILLIN/TAZOBACTAM SOD 3.375 GM in D5W MINI-BAG PLUS 50 ML IV SCH ×4 (03:57→22:04)
[2021-05-31] MEDS: HEPARIN SOD (PORCINE) 5000UNITS/ML 1ML VIAL/SYRINGE SC SCH ×3 (05:02→22:05)
[2021-05-31] MEDS: SODIUM CHLORIDE 0.9% INJ 10 ML SYR IV SCH ×2 (05:03→16:47)
[2021-05-31] MEDS: SODIUM CHLORIDE 0.9% INJ 10 ML SYR IV PRN (05:04)
[2021-05-31 07:06] LABS: HEMATOCRIT 35.4 % (36.0-47.0); HEMOGLOBIN 11.1 g/dl (12.0-15.5); MEAN CORPUSCULAR HEMOGLOBIN 27.5 pg (27.0-33.0); MEAN CORPUSCULAR HGB CONC 31.4 g/dl (32.0-36.5); MEAN CORPUSCULAR VOLUME 87.8 fl (80.0-96.0); PLATELET COUNT, AUTOMATED 175 10^3/uL (150-450); RED BLOOD COUNT 4.03 10^6/uL (4.00-5.40); WHITE BLOOD COUNT 6.1 10^3/uL (4.0-10.0)
[2021-05-31 07:37] LABS: ALBUMIN 2.6 GM/DL (3.2-5.2); ALT/SGPT 38 U/L (12-78); BILIRUBIN,TOTAL 0.4 MG/DL (0.2-1.0); BLOOD UREA NITROGEN 8 MG/DL (7-18); CALCIUM LEVEL 8.7 MG/DL (8.5-10.1); CARBON DIOXIDE LEVEL 32 MEQ/L (21-32); CHLORIDE LEVEL 104 MEQ/L (98-107); CREATININE FOR GFR 0.53 MG/DL (0.55-1.30); GLOMERULAR FILTRATION RATE > 60.0 (>58); GLUCOSE, FASTING 163 MG/DL (70-100); MAGNESIUM LEVEL 2.2 MG/DL (1.8-2.4); POTASSIUM SERUM 4.1 MEQ/L (3.5-5.1); SODIUM LEVEL 140 MEQ/L (136-145); TOTAL PROTEIN 6.2 GM/DL (6.4-8.2)
[2021-05-31 08:17] LABS: ATYPICAL LYMPH 6 % (0-5); BASOPHILS 1 % (0-1); EOSINOPHILS 2 % (0-3); LYMPHOCYTES 23 % (16-44); METAMYELOCYTES 1 % (0-0); MONOCYTES 8 % (0-5); MYELOCYTES 1 % (0-0); NEUTROPHILS 57 % (28-66)
[2021-05-31 08:18] LABS: PLATELET ESTIMATE NORMAL (NORMAL)
[2021-05-31 08:19] LABS: POLYCHROMASIA 1+; STOMATOCYTES 1+
[2021-05-31 08:21] LABS: GIANT PLATELETS 1+; SMUDGE CELLS 1+
[2021-05-31] MEDS: HumaLOG INSULIN (NovoLOG) PER UNIT SC SCH ×4 (08:29→21:00)
[2021-05-31] MEDS: LEVEMIR (INSULIN DETEMIR) 1 UNITS/0.01ML SC SCH ×2 (08:29→22:04)
[2021-05-31] MEDS: SILVER SULFADIAZINE 1% CR 50 GM JAR TOP SCH ×2 (08:30→22:05)
[2021-05-31 10:38] LABS: BILIRUBIN,DIRECT 0.2 MG/DL (0.0-0.2); CHOLESTEROL LEVEL 152 MG/DL (<200); CHOLESTEROL RISK RATIO 8.941 (<5); HDL CHOLESTEROL 17 MG/DL (>40); LDL CHOLESTEROL 83 MG/DL (<100); NON-HDL-C 135 MG/DL; TRIGLYCERIDES LEVEL 260 MG/DL (<150)
[2021-05-31 11:22] LABS: HEMOGLOBIN A1c 7.8 %
[2021-05-31] MEDS: PERCOCET 5MG/325MG TAB PO PRN (13:59)
[2021-05-31 14:00] VITALS: BP 145/78
[2021-05-31 16:00] VITALS: BP 143/75
[2021-05-31 22:00] VITALS: BP 166/80
[2021-06-01] MEDS: PERCOCET 5MG/325MG TAB PO PRN ×2 (00:34→14:27)
[2021-06-01] MEDS: PIPERACILLIN/TAZOBACTAM SOD 3.375 GM in D5W MINI-BAG PLUS 50 ML IV SCH ×2 (04:43→09:54)
[2021-06-01 06:00] VITALS: BP 170/88
[2021-06-01] MEDS: SODIUM CHLORIDE 0.9% INJ 10 ML SYR IV SCH (06:12)
[2021-06-01] MEDS: HEPARIN SOD (PORCINE) 5000UNITS/ML 1ML VIAL/SYRINGE SC SCH ×2 (06:13→13:41)
[2021-06-01 06:36] LABS: HEMATOCRIT 35.3 % (36.0-47.0); MEAN CORPUSCULAR HEMOGLOBIN 27.4 pg (27.0-33.0); MEAN CORPUSCULAR HGB CONC 31.2 g/dl (32.0-36.5); PLATELET COUNT, AUTOMATED 203 10^3/uL (150-450); RED BLOOD COUNT 4.01 10^6/uL (4.00-5.40); WHITE BLOOD COUNT 7.7 10^3/uL (4.0-10.0)
[2021-06-01 07:08] LABS: ALBUMIN 2.8 GM/DL (3.2-5.2); ALT/SGPT 35 U/L (12-78); BILIRUBIN,TOTAL 0.4 MG/DL (0.2-1.0); BLOOD UREA NITROGEN 9 MG/DL (7-18); CALCIUM LEVEL 8.8 MG/DL (8.5-10.1); CARBON DIOXIDE LEVEL 32 MEQ/L (21-32); CHLORIDE LEVEL 103 MEQ/L (98-107); CREATININE FOR GFR 0.53 MG/DL (0.55-1.30); GLOMERULAR FILTRATION RATE > 60.0 (>58); GLUCOSE, FASTING 159 MG/DL (70-100); MAGNESIUM LEVEL 2.3 MG/DL (1.8-2.4); POTASSIUM SERUM 4.1 MEQ/L (3.5-5.1); SODIUM LEVEL 139 MEQ/L (136-145); TOTAL PROTEIN 6.6 GM/DL (6.4-8.2)
[2021-06-01 07:20] LABS: ATYPICAL LYMPH 7 % (0-5); EOSINOPHILS 1 % (0-3); LYMPHOCYTES 21 % (16-44); MONOCYTES 4 % (0-5); NEUTROPHILS 67 % (28-66); PLATELET ESTIMATE NORMAL (NORMAL)
[2021-06-01] MEDS ORDERED: amLODIPine 5 MG TAB PO SCH (07:40)
[2021-06-01 08:22] VITALS: BP 164/78
[2021-06-01] MEDS: HumaLOG INSULIN (NovoLOG) PER UNIT SC SCH ×2 (08:22→13:40)
[2021-06-01] MEDS: LEVEMIR (INSULIN DETEMIR) 1 UNITS/0.01ML SC SCH (08:23)
[2021-06-01] MEDS: SILVER SULFADIAZINE 1% CR 50 GM JAR TOP SCH (08:23)
[2021-06-01 13:09] LABS: HEPATITIS B SURFACE ANTIGEN NEGATIVE (NEGATIVE)
[2021-06-01 13:35] LABS: HEPATITIS C VIRUS ABY INDEX 0.1 INDEX (<0.8)
[2021-06-01 13:36] LABS: HEPATITIS B CORE ANTIBODY IGM NEGATIVE (NEGATIVE)
[2021-06-01] MEDS ORDERED: AMLO1TAB24 PO (13:57)
[2021-06-01] MEDS ORDERED: LANTINJ4 SC (13:57)
[2021-06-01] MEDS ORDERED: PERCOCET PO (13:57)
[2021-06-01] MEDS ORDERED: SILV50CR TOP (13:57)
[2021-06-01 14:00] VITALS: BP 158/92
[2021-06-01] MEDS ORDERED: HUMU500S2 SC (14:24)
[2021-06-01] MEDS ORDERED: HUMA100I5 SC (14:30)
[2021-06-01] MEDS ORDERED: LANC30MI XX (14:30)
[2021-06-01] MEDS ORDERED: ALCOPAD25 TOP (14:30)
[2021-06-01] MEDS ORDERED: GLUC1TES2 XX (14:30)
[2021-06-01] MEDS ORDERED: PEN1MIS22 SC (14:30)
== END 2021-06-01 15:35 | disposition home health service (06) | DRG 872 ==
LOC: M ED 21:24 → M ED INP 05-27 01:28 → ENRESERV 05-27 06:11 → M MS5PR 05-27 07:55
PROVIDERS: ADMIT Internal Medicine; ATTEND Family Medicine
PROC: 02HV33Z Insertion of Infusion Device into Superior Vena Cava, Percutaneous Approach (ICD-10-PCS; principal; 2021-05-28 14:35)
DX: A41.9 Sepsis, unspecified organism (principal); Z68.41 Body mass index [BMI] 40.0-44.9, adult; L03.115 Cellulitis of right lower limb; E11.621 Type 2 diabetes mellitus with foot ulcer; E66.01 Morbid (severe) obesity due to excess calories; F41.9 Anxiety disorder, unspecified; F32.9 Major depressive disorder, single episode, unspecified; L97.519 Non-pressure chronic ulcer of other part of right foot with unspecified severity; Z79.4 Long term (current) use of insulin; E87.6 Hypokalemia; E11.610 Type 2 diabetes mellitus with diabetic neuropathic arthropathy; E11.618 Type 2 diabetes mellitus with other diabetic arthropathy; E11.40 Type 2 diabetes mellitus with diabetic neuropathy, unspecified

== ENCOUNTER → 2021-06-08 | Outpatient (REF) | payer OTHER ==
[~2021-06-08] MED LIST changes: +ACTO30TA15 PO; +ALCOPAD25 TOP; +AMLO1TAB24 PO; +CEFD1CAP8 PO; -CEFD300C41 PO; +GLUC1TES2 XX; +HUMA100I5 SC; +JARD1TAB3 PO; +LANC30MI XX; +LANTINJ4 SC; +LEVO250T12 PO; -LEVO250T3 PO; +PEN1MIS22 SC; +PERCOCET PO; +SILV50CR TOP
[2021-06-08 11:08] LABS: HEMATOCRIT 40.6 % (36.0-47.0); HEMOGLOBIN 12.7 g/dl (12.0-15.5); MEAN CORPUSCULAR HEMOGLOBIN 27.4 pg (27.0-33.0); MEAN CORPUSCULAR HGB CONC 31.3 g/dl (32.0-36.5); MEAN CORPUSCULAR VOLUME 87.5 fl (80.0-96.0); PLATELET COUNT, AUTOMATED 217 10^3/uL (150-450); RED BLOOD COUNT 4.64 10^6/uL (4.00-5.40); WHITE BLOOD COUNT 7.5 10^3/uL (4.0-10.0)
[2021-06-08 11:34] LABS: ALBUMIN 3.4 GM/DL (3.2-5.2); ALT/SGPT 24 U/L (12-78); BILIRUBIN,TOTAL 0.3 MG/DL (0.2-1.0); BLOOD UREA NITROGEN 14 MG/DL (7-18); C REACTIVE PROTEIN QUANTITATIV 1.06 MG/DL (0.00-0.30); CALCIUM LEVEL 9.1 MG/DL (8.5-10.1); CARBON DIOXIDE LEVEL 29 MEQ/L (21-32); CHLORIDE LEVEL 101 MEQ/L (98-107); GLOMERULAR FILTRATION RATE > 60.0 (>58); GLUCOSE, FASTING 300 MG/DL (70-100); POTASSIUM SERUM 4.6 MEQ/L (3.5-5.1); SODIUM LEVEL 134 MEQ/L (136-145); TOTAL PROTEIN 7.5 GM/DL (6.4-8.2)
[2021-06-08 11:38] LABS: ERYTHROCYTE SEDIMENTATION RATE 52 mm/hr (0-20)
== END ==
LOC: M SHH 10:20
PROVIDERS: ATTEND Internal Medicine Infectious Disease
DX: E11.621 Type 2 diabetes mellitus with foot ulcer (principal); B96.5 Pseudomonas (aeruginosa) (mallei) (pseudomallei) as the cause of diseases classified elsewhere; B95.1 Streptococcus, group B, as the cause of diseases classified elsewhere

== ENCOUNTER → 2021-06-15 | Outpatient (REF) | payer OTHER ==
[~2021-06-15] MED LIST changes: -CEFD1CAP8 PO; +CEFD300C41 PO; -LEVO250T12 PO; +LEVO250T3 PO
[2021-06-15 14:41] LABS: HEMOGLOBIN 13.4 g/dl (12.0-15.5); MEAN CORPUSCULAR HEMOGLOBIN 27.5 pg (27.0-33.0); MEAN CORPUSCULAR HGB CONC 31.9 g/dl (32.0-36.5); MEAN CORPUSCULAR VOLUME 86.1 fl (80.0-96.0); PLATELET COUNT, AUTOMATED 244 10^3/uL (150-450); RED BLOOD COUNT 4.88 10^6/uL (4.00-5.40); WHITE BLOOD COUNT 4.3 10^3/uL (4.0-10.0)
[2021-06-15 15:20] LABS: ALBUMIN 3.6 GM/DL (3.2-5.2); ALT/SGPT 32 U/L (12-78); BILIRUBIN,TOTAL 0.4 MG/DL (0.2-1.0); BLOOD UREA NITROGEN 12 MG/DL (7-18); C REACTIVE PROTEIN QUANTITATIV 0.69 MG/DL (0.00-0.30); CALCIUM LEVEL 9.1 MG/DL (8.5-10.1); CARBON DIOXIDE LEVEL 27 MEQ/L (21-32); CHLORIDE LEVEL 104 MEQ/L (98-107); CREATININE FOR GFR 0.64 MG/DL (0.55-1.30); GLOMERULAR FILTRATION RATE > 60.0 (>58); GLUCOSE, FASTING 273 MG/DL (70-100); POTASSIUM SERUM 4.4 MEQ/L (3.5-5.1); SODIUM LEVEL 138 MEQ/L (136-145); TOTAL PROTEIN 7.9 GM/DL (6.4-8.2)
[2021-06-15 19:11] LABS: ERYTHROCYTE SEDIMENTATION RATE 2 mm/hr (0-20)
== END ==
LOC: M SHH 14:07
PROVIDERS: ATTEND Internal Medicine Infectious Disease
DX: E11.621 Type 2 diabetes mellitus with foot ulcer (principal); B96.5 Pseudomonas (aeruginosa) (mallei) (pseudomallei) as the cause of diseases classified elsewhere; B95.1 Streptococcus, group B, as the cause of diseases classified elsewhere

== ENCOUNTER 2021-07-01 09:03 | Emergency (ER) | payer OTHER ==
[~2021-07-01] VITALS: Ht 180.3 cm; Wt 118.2 kg
[2021-07-01] MEDS ORDERED: METF10004 PO (09:12)
[2021-07-01] MEDS ORDERED: LANTINJ4 SC (09:12)
[2021-07-01 11:20] LABS: BASO % 0.3 % (0.0-1.0); EOS % 0.3 % (0.0-3.0); HEMATOCRIT 39.2 % (36.0-47.0); HEMOGLOBIN 12.8 g/dl (12.0-15.5); LYMPH # 1.4 10^3/uL (1.5-5.0); LYMPH % 9.9 % (24.0-44.0); MEAN CORPUSCULAR HEMOGLOBIN 27.4 pg (27.0-33.0); MEAN CORPUSCULAR HGB CONC 32.7 g/dl (32.0-36.5); MEAN CORPUSCULAR VOLUME 83.9 fl (80.0-96.0); MONO # 1.4 10^3/uL (0.0-0.8); MONO % 9.4 % (2.0-8.0); NEUTROPHILS # 11.5 10^3/uL (1.5-8.5); NEUTROPHILS % 79.7 % (36.0-66.0); PLATELET COUNT, AUTOMATED 200 10^3/uL (150-450); RED BLOOD COUNT 4.67 10^6/uL (4.00-5.40); WHITE BLOOD COUNT 14.4 10^3/uL (4.0-10.0)
[2021-07-01 11:31] LABS: INR 1.06; PROTHROMBIN TIME 14.2 SECONDS (12.7-14.5)
[2021-07-01 11:32] LABS: PARTIAL THROMBOPLASTIN TIME 33.7 SECONDS (25.9-37.0)
[2021-07-01 11:34] LABS: D-DIMER QUANT 1874.55 ng/ml (<500)
[2021-07-01] MEDS ORDERED: ISOVUE-370 76% 100ML VIAL As Ordered ONE (11:43)
[2021-07-01] MEDS ORDERED: NS 1,000 ML IV ONE (11:50)
[2021-07-01] MEDS ORDERED: ACETAMINOPHEN 500 MG TAB PO ONE (11:50)
[2021-07-01 13:30] VITALS: BP 125/60
== END 2021-07-01 13:43 | disposition home or self-care (01) ==
LOC: M ED 09:03
DX: R06.02 Shortness of breath (principal); L89.612 Pressure ulcer of right heel, stage 2; R00.0 Tachycardia, unspecified; I10 Essential (primary) hypertension; G43.909 Migraine, unspecified, not intractable, without status migrainosus; E11.9 Type 2 diabetes mellitus without complications; Z79.4 Long term (current) use of insulin; Z79.899 Other long term (current) drug therapy
CPT/HCPCS: 71046; 71275; 80047; 85025; 85379; 85610; 85730; 93005; 93041; 94760; 96360; 99285; Q9967

== ENCOUNTER 2021-07-05 21:48 | Inpatient (IN) | payer OTHER ==
[~2021-07-05] VITALS: Ht 180.3 cm; Wt 127.5 kg
[2021-07-05] MEDS ORDERED: ACET-683 PO (21:59)
[2021-07-06] MEDS ORDERED: VANCOMYCIN HCL 2,000 MG in IV FLUID PLACE HOLDER 1 EA IV ONE (01:05)
[2021-07-06] MEDS ORDERED: NS 1,000 ML IV ONE (01:05)
[2021-07-06 01:22] LABS: BASO % 0.3 % (0.0-1.0); EOS # 0.2 10^3/uL (0.0-0.5); EOS % 1.4 % (0.0-3.0); HEMOGLOBIN 12.3 g/dl (12.0-15.5); LYMPH # 1.2 10^3/uL (1.5-5.0); LYMPH % 8.8 % (24.0-44.0); MEAN CORPUSCULAR HEMOGLOBIN 27.2 pg (27.0-33.0); MEAN CORPUSCULAR HGB CONC 32.4 g/dl (32.0-36.5); MEAN CORPUSCULAR VOLUME 83.9 fl (80.0-96.0); MONO % 12.1 % (2.0-8.0); NEUTROPHILS # 10.2 10^3/uL (1.5-8.5); NEUTROPHILS % 76.9 % (36.0-66.0); PLATELET COUNT, AUTOMATED 248 10^3/uL (150-450); RED BLOOD COUNT 4.53 10^6/uL (4.00-5.40); WHITE BLOOD COUNT 13.2 10^3/uL (4.0-10.0)
[2021-07-06 01:44] LABS: BLOOD UREA NITROGEN 11 MG/DL (7-18); CALCIUM LEVEL 8.5 MG/DL (8.5-10.1); CARBON DIOXIDE LEVEL 28 MEQ/L (21-32); CHLORIDE LEVEL 97 MEQ/L (98-107); CREATININE FOR GFR 0.84 MG/DL (0.55-1.30); ERYTHROCYTE SEDIMENTATION RATE 88 mm/hr (0-20); GLOMERULAR FILTRATION RATE > 60.0 (>58); GLUCOSE, FASTING 402 MG/DL (70-100); POTASSIUM SERUM 3.7 MEQ/L (3.5-5.1); SODIUM LEVEL 133 MEQ/L (136-145)
[2021-07-06 01:52] LABS: MONO # 1.6 10^3/uL (0.0-0.8)
[2021-07-06] MEDS ORDERED: LANTINJ4 SC ×2 (01:57)
[2021-07-06] MEDS ORDERED: AMLO1TAB24 PO (01:57)
[2021-07-06] MEDS ORDERED: INSU100I9 PO (01:58)
[2021-07-06] MEDS ORDERED: METF-877 PO (01:58)
[2021-07-06] MEDS ORDERED: VANCOMYCIN HCL 1,000 MG, VIAL MATE ADAPTER 1 EACH in NS 250 ML IV ONE ×6 (02:00)
[2021-07-06] MEDS ORDERED: HOME MED LIST COMPLETE! XX SCH (02:00)
[2021-07-06] MEDS ORDERED: HumuLIN R (REGULAR) INSULIN (NovoLIN R) **100U/ML** PER UNIT SC STA (02:59)
[2021-07-06] MEDS ORDERED: GLUCOSE 4GM CHEW TABLET PO PRN (03:00)
[2021-07-06] MEDS ORDERED: GLUCAGON INJ 1MG VIAL SC PRN (03:00)
[2021-07-06] MEDS ORDERED: SODIUM CHLORIDE 0.9% 1000ML IV ONE (03:00)
[2021-07-06] MEDS ORDERED: DEXTROSE 50% 50 ML SYRINGE IV PRN (03:00)
[2021-07-06] MEDS ORDERED: VANCOMYCIN HCL 2,000 MG, VIAL MATE ADAPTER 1 EACH in NS 250 ML IV SCH (03:30)
[2021-07-06] MEDS ORDERED: NS 1,000 ML IV SCH (04:00)
[2021-07-06 04:42] VITALS: BP 153/89
[2021-07-06] MEDS: ACETAMINOPHEN TAB 650MG DOSE (2X325MG) PO PRN ×2 (05:10→16:25)
[2021-07-06] MEDS: HEPARIN SOD (PORCINE) 5000UNITS/ML 1ML VIAL/SYRINGE SC SCH ×3 (05:11→21:31)
[2021-07-06] MEDS: LEVEMIR (INSULIN DETEMIR) 1 UNITS/0.01ML SC SCH ×2 (08:06→21:28)
[2021-07-06] MEDS: HumaLOG INSULIN (NovoLOG) PER UNIT SC SCH ×4 (08:06→21:29)
[2021-07-06] MEDS ORDERED: VANCOMYCIN HCL 1,000 MG, VIAL MATE ADAPTER 1 EACH in NS 250 ML IV SCH (10:00)
[2021-07-06] MEDS ORDERED: PROHANCE 279.3MG/ML 5ML VIAL ONE (10:15)
[2021-07-06] MEDS ORDERED: PROHANCE 279.3MG/ML 15ML VIAL ONE (10:15)
[2021-07-06] MEDS ORDERED: VANCOMYCIN HCL 500 MG in D5W MINI-BAG PLUS 100 ML IV SCH (11:00)
[2021-07-06] MEDS: amLODIPine 5 MG TAB PO SCH (11:30)
[2021-07-06] MEDS: PIPERACILLIN/TAZOBACTAM SOD 3.375 GM in D5W MINI-BAG PLUS 50 ML IV SCH ×3 (11:30→21:27)
[2021-07-06 14:00] VITALS: BP 136/90
[2021-07-06 22:00] VITALS: BP 137/89
[2021-07-07] VITALS (10 sets, daily range): BP systolic 137–157; BP diastolic 63–95
[2021-07-07] MEDS: PIPERACILLIN/TAZOBACTAM SOD 3.375 GM in D5W MINI-BAG PLUS 50 ML IV SCH ×4 (03:05→21:46)
[2021-07-07 04:02] LABS: HEMOGLOBIN 10.7 g/dl (12.0-15.5); MEAN CORPUSCULAR HEMOGLOBIN 27.4 pg (27.0-33.0); MEAN CORPUSCULAR HGB CONC 32.4 g/dl (32.0-36.5); MEAN CORPUSCULAR VOLUME 84.6 fl (80.0-96.0); PLATELET COUNT, AUTOMATED 229 10^3/uL (150-450); WHITE BLOOD COUNT 7.9 10^3/uL (4.0-10.0)
[2021-07-07 04:22] LABS: CK-MB VALUE MASS < 1.0 NG/ML (<3.6); CPK CREATINE PHOSPHOKINASE 18 U/L (26-192); MB/CK RELATIVE INDEX 5.56 (< OR =4)
[2021-07-07 04:35] LABS: BLOOD UREA NITROGEN 7 MG/DL (7-18); CALCIUM LEVEL 8.6 MG/DL (8.5-10.1); CARBON DIOXIDE LEVEL 29 MEQ/L (21-32); CHLORIDE LEVEL 102 MEQ/L (98-107); CHOLESTEROL LEVEL 149 MG/DL (<200); CREATININE FOR GFR 0.58 MG/DL (0.55-1.30); GLOMERULAR FILTRATION RATE > 60.0 (>58); GLUCOSE, FASTING 229 MG/DL (70-100); HDL CHOLESTEROL 20 MG/DL (>40); LDL CHOLESTEROL 84 MG/DL (<100); NON-HDL-C 129 MG/DL; POTASSIUM SERUM 3.9 MEQ/L (3.5-5.1); SODIUM LEVEL 138 MEQ/L (136-145); TRIGLYCERIDES LEVEL 223 MG/DL (<150)
[2021-07-07] MEDS: HEPARIN SOD (PORCINE) 5000UNITS/ML 1ML VIAL/SYRINGE SC SCH ×3 (05:18→21:46)
[2021-07-07 06:02] LABS: HEMATOCRIT 32.4 % (36.0-47.0); HEMOGLOBIN 10.4 g/dl (12.0-15.5)
[2021-07-07 06:23] LABS: INR 1.1; PROTHROMBIN TIME 14.6 SECONDS (12.7-14.5)
[2021-07-07 06:24] LABS: PARTIAL THROMBOPLASTIN TIME 43.6 SECONDS (25.9-37.0)
[2021-07-07 06:35] LABS: CK-MB VALUE MASS < 1.0 NG/ML (<3.6); CPK CREATINE PHOSPHOKINASE 16 U/L (26-192); MB/CK RELATIVE INDEX 6.25 (< OR =4)
[2021-07-07] MEDS: LEVEMIR (INSULIN DETEMIR) 1 UNITS/0.01ML SC SCH ×2 (08:07→21:45)
[2021-07-07] MEDS: HumaLOG INSULIN (NovoLOG) PER UNIT SC SCH ×4 (08:08→21:00)
[2021-07-07] MEDS: amLODIPine 5 MG TAB PO SCH (08:10)
[2021-07-07 11:00] LABS: HEMOGLOBIN A1c 9.1 %
[2021-07-07] MEDS ORDERED: GENTAMICIN SULF 80MG/2ML VIAL As Ordered ONE (15:49)
[2021-07-07] MEDS ORDERED: BUPIVACAINE HCL 0.5% 10ML VIAL As Ordered ONE (15:50)
[2021-07-07] MEDS ORDERED: LIDOCAINE 2% MDV 20ML VIAL As Ordered ONE (15:50)
[2021-07-07] MEDS ORDERED: ROPIvacaine 0.5% 30ML INJECTION (J2795 PER 1MG) As Ordered ONE (15:50)
[2021-07-07] MEDS ORDERED: propofoL 200 MG/20 ML VIAL As Ordered ONE (15:52)
[2021-07-07] MEDS ORDERED: LIDOCAINE 2% 100MG/5ML SDV (FOR ANES.) As Ordered ONE (15:52)
[2021-07-07] MEDS ORDERED: fentaNYL 100 MCG/2 ML INJECTION As Ordered ONE (15:52)
[2021-07-07] MEDS ORDERED: MIDAZOLAM INJ 2MG/2ML VIAL (J2250 PER 1MG) As Ordered ONE (15:52)
[2021-07-07] MEDS ORDERED: KETOROLAC 60MG 2ML VIAL As Ordered ONE (17:26)
[2021-07-07] MEDS ORDERED: ONDANSETRON 4MG/2ML VIAL IV PRN (17:50)
[2021-07-07] MEDS ORDERED: NS 1,000 ML IV SCH (17:50)
[2021-07-07] MEDS ORDERED: fentaNYL 100 MCG/2 ML INJECTION IV PRN (17:50)
[2021-07-07] MEDS ORDERED: PERCOCET 5MG/325MG TAB PO PRN (17:50)
[2021-07-07] MEDS ORDERED: HumaLOG INSULIN (NovoLOG) PER UNIT SC SCH (17:55)
[2021-07-07] MEDS: ACETAMINOPHEN TAB 650MG DOSE (2X325MG) PO PRN (19:42)
[2021-07-08 02:35] VITALS: BP 152/94
[2021-07-08] MEDS: PIPERACILLIN/TAZOBACTAM SOD 3.375 GM in D5W MINI-BAG PLUS 50 ML IV SCH (03:32)
[2021-07-08] MEDS: HEPARIN SOD (PORCINE) 5000UNITS/ML 1ML VIAL/SYRINGE SC SCH ×3 (05:47→21:38)
[2021-07-08 06:00] VITALS: BP 155/94
[2021-07-08 06:16] LABS: HEMATOCRIT 32.9 % (36.0-47.0); HEMOGLOBIN 10.4 g/dl (12.0-15.5); MEAN CORPUSCULAR HEMOGLOBIN 27.4 pg (27.0-33.0); MEAN CORPUSCULAR HGB CONC 31.6 g/dl (32.0-36.5); MEAN CORPUSCULAR VOLUME 86.8 fl (80.0-96.0); PLATELET COUNT, AUTOMATED 227 10^3/uL (150-450); RED BLOOD COUNT 3.79 10^6/uL (4.00-5.40); WHITE BLOOD COUNT 6.5 10^3/uL (4.0-10.0)
[2021-07-08 06:40] LABS: BLOOD UREA NITROGEN 10 MG/DL (7-18); CALCIUM LEVEL 8.8 MG/DL (8.5-10.1); CARBON DIOXIDE LEVEL 31 MEQ/L (21-32); CHLORIDE LEVEL 103 MEQ/L (98-107); CREATININE FOR GFR 0.65 MG/DL (0.55-1.30); GLOMERULAR FILTRATION RATE > 60.0 (>58); GLUCOSE, FASTING 300 MG/DL (70-100); POTASSIUM SERUM 3.6 MEQ/L (3.5-5.1); SODIUM LEVEL 139 MEQ/L (136-145)
[2021-07-08] MEDS: amLODIPine 5 MG TAB PO SCH (08:56)
[2021-07-08] MEDS: HumaLOG INSULIN (NovoLOG) PER UNIT SC SCH ×4 (08:57→20:11)
[2021-07-08] MEDS: LEVEMIR (INSULIN DETEMIR) 1 UNITS/0.01ML SC SCH ×2 (08:57→20:11)
[2021-07-08 09:00] VITALS: BP 150/90
[2021-07-08] MEDS: ceFAZolin SOD 1 GM in D5W MINI-BAG PLUS 50 ML IV SCH ×2 (13:16→20:11)
[2021-07-08] MEDS: ACETAMINOPHEN TAB 650MG DOSE (2X325MG) PO PRN ×2 (13:28→20:12)
[2021-07-08] MEDS: metFORMIN (GLUCOPHAGE) 1000 MG TABLET PO SCH ×2 (13:31→20:11)
[2021-07-08 14:00] VITALS: BP 152/96
[2021-07-08 21:00] VITALS: BP 153/95
[2021-07-09] MEDS: ceFAZolin SOD 1 GM in D5W MINI-BAG PLUS 50 ML IV SCH ×2 (03:51→12:22)
[2021-07-09] MEDS: HEPARIN SOD (PORCINE) 5000UNITS/ML 1ML VIAL/SYRINGE SC SCH ×3 (05:14→21:05)
[2021-07-09 05:57] LABS: HEMATOCRIT 34.9 % (36.0-47.0); HEMOGLOBIN 10.8 g/dl (12.0-15.5); MEAN CORPUSCULAR HGB CONC 30.9 g/dl (32.0-36.5); MEAN CORPUSCULAR VOLUME 87.3 fl (80.0-96.0); PLATELET COUNT, AUTOMATED 282 10^3/uL (150-450)
[2021-07-09 06:18] LABS: BLOOD UREA NITROGEN 7 MG/DL (7-18); C REACTIVE PROTEIN QUANTITATIV 6.53 MG/DL (0.00-0.30); CALCIUM LEVEL 8.9 MG/DL (8.5-10.1); CARBON DIOXIDE LEVEL 31 MEQ/L (21-32); CHLORIDE LEVEL 103 MEQ/L (98-107); CREATININE FOR GFR 0.54 MG/DL (0.55-1.30); GLOMERULAR FILTRATION RATE > 60.0 (>58); GLUCOSE, FASTING 189 MG/DL (70-100); POTASSIUM SERUM 3.5 MEQ/L (3.5-5.1); SODIUM LEVEL 137 MEQ/L (136-145)
[2021-07-09 06:37] VITALS: BP 156/96
[2021-07-09 08:57] VITALS: BP 142/80
[2021-07-09] MEDS: metFORMIN (GLUCOPHAGE) 1000 MG TABLET PO SCH ×2 (09:09→18:21)
[2021-07-09] MEDS: HumaLOG INSULIN (NovoLOG) PER UNIT SC SCH ×4 (09:10→20:07)
[2021-07-09] MEDS: amLODIPine 5 MG TAB PO SCH (09:34)
[2021-07-09] MEDS: LEVEMIR (INSULIN DETEMIR) 1 UNITS/0.01ML SC SCH ×2 (09:35→20:35)
[2021-07-09] MEDS ORDERED: INSUR50VL SC (10:20)
[2021-07-09] MEDS ORDERED: CEPH500C PO (10:20)
[2021-07-09] MEDS ORDERED: CEPHALEXIN 500 MG CAP PO SCH ×2 (12:00→22:00)
[2021-07-09 14:00] VITALS: BP 159/97
[2021-07-09] MEDS ORDERED: CEPHALEXIN 500 MG CAP PO ONE (15:30)
[2021-07-09] MEDS: ceFAZolin SOD 2 GM in IV 1 EA IV SCH (18:20)
[2021-07-09] MEDS: ACETAMINOPHEN TAB 650MG DOSE (2X325MG) PO PRN (18:21)
[2021-07-09] MEDS ORDERED: KETOROLAC 30 MG/ML 1ML VIAL IV PRN (20:00)
[2021-07-09 21:00] VITALS: BP 146/72
[2021-07-10] MEDS: ceFAZolin SOD 2 GM in IV 1 EA IV SCH ×3 (02:17→18:18)
[2021-07-10 04:00] VITALS: BP 163/91
[2021-07-10] MEDS: HEPARIN SOD (PORCINE) 5000UNITS/ML 1ML VIAL/SYRINGE SC SCH ×3 (05:18→21:17)
[2021-07-10 07:26] LABS: HEMATOCRIT 35.5 % (36.0-47.0); HEMOGLOBIN 11.2 g/dl (12.0-15.5); MEAN CORPUSCULAR HEMOGLOBIN 27.2 pg (27.0-33.0); MEAN CORPUSCULAR HGB CONC 31.5 g/dl (32.0-36.5); MEAN CORPUSCULAR VOLUME 86.2 fl (80.0-96.0); PLATELET COUNT, AUTOMATED 279 10^3/uL (150-450); RED BLOOD COUNT 4.12 10^6/uL (4.00-5.40); WHITE BLOOD COUNT 7.5 10^3/uL (4.0-10.0)
[2021-07-10 07:46] LABS: BLOOD UREA NITROGEN 8 MG/DL (7-18); C REACTIVE PROTEIN QUANTITATIV 3.89 MG/DL (0.00-0.30); CALCIUM LEVEL 8.8 MG/DL (8.5-10.1); CARBON DIOXIDE LEVEL 31 MEQ/L (21-32); CHLORIDE LEVEL 103 MEQ/L (98-107); CREATININE FOR GFR 0.53 MG/DL (0.55-1.30); GLOMERULAR FILTRATION RATE > 60.0 (>58); GLUCOSE, FASTING 181 MG/DL (70-100); POTASSIUM SERUM 3.3 MEQ/L (3.5-5.1); SODIUM LEVEL 137 MEQ/L (136-145)
[2021-07-10] MEDS: amLODIPine 5 MG TAB PO SCH (09:00)
[2021-07-10] MEDS: metFORMIN (GLUCOPHAGE) 1000 MG TABLET PO SCH (09:00)
[2021-07-10] MEDS: HumaLOG INSULIN (NovoLOG) PER UNIT SC SCH ×4 (09:01→21:00)
[2021-07-10] MEDS: LEVEMIR (INSULIN DETEMIR) 1 UNITS/0.01ML SC SCH ×2 (09:01→21:18)
[2021-07-10] MEDS: POTASSIUM CHLORIDE 10MEQ SR TABLET PO SCH ×2 (10:51→21:15)
[2021-07-10 14:00] VITALS: BP 130/82
[2021-07-10] MEDS ORDERED: LOPERAMIDE 2 MG CAPLET PO ONE (17:10)
[2021-07-10 22:00] VITALS: BP 144/74
[2021-07-11] MEDS: ceFAZolin SOD 2 GM in IV 1 EA IV SCH ×2 (02:17→09:15)
[2021-07-11] MEDS: HEPARIN SOD (PORCINE) 5000UNITS/ML 1ML VIAL/SYRINGE SC SCH (05:31)
[2021-07-11 05:58] LABS: HEMATOCRIT 36.6 % (36.0-47.0); HEMOGLOBIN 11.8 g/dl (12.0-15.5); MEAN CORPUSCULAR HEMOGLOBIN 27.6 pg (27.0-33.0); MEAN CORPUSCULAR HGB CONC 32.2 g/dl (32.0-36.5); MEAN CORPUSCULAR VOLUME 85.5 fl (80.0-96.0); PLATELET COUNT, AUTOMATED 293 10^3/uL (150-450); RED BLOOD COUNT 4.28 10^6/uL (4.00-5.40)
[2021-07-11 06:00] VITALS: BP 128/58
[2021-07-11 06:42] LABS: BLOOD UREA NITROGEN 7 MG/DL (7-18); C REACTIVE PROTEIN QUANTITATIV 2.55 MG/DL (0.00-0.30); CARBON DIOXIDE LEVEL 28 MEQ/L (21-32); CHLORIDE LEVEL 103 MEQ/L (98-107); CREATININE FOR GFR 0.58 MG/DL (0.55-1.30); GLOMERULAR FILTRATION RATE > 60.0 (>58); GLUCOSE, FASTING 230 MG/DL (70-100); POTASSIUM SERUM 3.9 MEQ/L (3.5-5.1); SODIUM LEVEL 137 MEQ/L (136-145)
[2021-07-11] MEDS: LEVEMIR (INSULIN DETEMIR) 1 UNITS/0.01ML SC SCH (09:08)
[2021-07-11] MEDS: POTASSIUM CHLORIDE 10MEQ SR TABLET PO SCH (09:09)
[2021-07-11] MEDS: HumaLOG INSULIN (NovoLOG) PER UNIT SC SCH (09:09)
[2021-07-11 09:15] VITALS: BP 148/82
[2021-07-11] MEDS: amLODIPine 5 MG TAB PO SCH (09:15)
== END 2021-07-11 12:00 | disposition home or self-care (01) | DRG 988 ==
LOC: M ED 21:48 → M ED INP 07-06 02:26 → ENRESERV 07-06 03:36 → M MSPAV 07-06 04:35
PROVIDERS: ADMIT Internal Medicine; ATTEND Family Medicine
PROC: 0J9Q0ZZ Drainage of Right Foot Subcutaneous Tissue and Fascia, Open Approach (ICD-10-PCS; principal; 2021-07-07 15:00)
DX: E11.621 Type 2 diabetes mellitus with foot ulcer (principal); L03.115 Cellulitis of right lower limb; Z68.41 Body mass index [BMI] 40.0-44.9, adult; Z86.16 Personal history of COVID-19; I10 Essential (primary) hypertension; Z20.822 Contact with and (suspected) exposure to COVID-19; L97.519 Non-pressure chronic ulcer of other part of right foot with unspecified severity; E66.01 Morbid (severe) obesity due to excess calories; E11.42 Type 2 diabetes mellitus with diabetic polyneuropathy; Z90.49 Acquired absence of other specified parts of digestive tract; Z79.4 Long term (current) use of insulin; Z79.899 Other long term (current) drug therapy; Z79.84 Long term (current) use of oral hypoglycemic drugs; R07.89 Other chest pain; E78.5 Hyperlipidemia, unspecified; E11.69 Type 2 diabetes mellitus with other specified complication; M65.171 Other infective (teno)synovitis, right ankle and foot; A49.02 Methicillin resistant Staphylococcus aureus infection, unspecified site

== ENCOUNTER → 2021-07-16 | Outpatient (CLI) | payer OTHER ==
[~2021-07-16] MED LIST changes: +ACET-683 PO; +CEPH500C PO; +INSU100I9 PO; +INSUR50VL SC; +METF-877 PO
[2021-07-16 11:16] LABS: BASO # 0.1 10^3/uL (0.0-0.2); BASO % 0.5 % (0.0-1.0); EOS # 0.2 10^3/uL (0.0-0.5); EOS % 2.3 % (0.0-3.0); HEMATOCRIT 41.4 % (36.0-47.0); HEMOGLOBIN 13.5 g/dl (12.0-15.5); LYMPH # 2.1 10^3/uL (1.5-5.0); LYMPH % 23.3 % (24.0-44.0); MEAN CORPUSCULAR HEMOGLOBIN 28.1 pg (27.0-33.0); MEAN CORPUSCULAR HGB CONC 32.6 g/dl (32.0-36.5); MEAN CORPUSCULAR VOLUME 86.1 fl (80.0-96.0); MONO # 0.7 10^3/uL (0.0-0.8); MONO % 7.8 % (2.0-8.0); NEUTROPHILS % 65.1 % (36.0-66.0); PLATELET COUNT, AUTOMATED 272 10^3/uL (150-450); RED BLOOD COUNT 4.81 10^6/uL (4.00-5.40); WHITE BLOOD COUNT 9.2 10^3/uL (4.0-10.0)
[2021-07-16 11:44] LABS: ERYTHROCYTE SEDIMENTATION RATE 52 mm/hr (0-20)
[2021-07-16 11:47] LABS: BLOOD UREA NITROGEN 13 MG/DL (7-18); C REACTIVE PROTEIN QUANTITATIV 1.18 MG/DL (0.00-0.30); CALCIUM LEVEL 9.9 MG/DL (8.5-10.1); CARBON DIOXIDE LEVEL 27 MEQ/L (21-32); CHLORIDE LEVEL 100 MEQ/L (98-107); CREATININE FOR GFR 0.63 MG/DL (0.55-1.30); GLOMERULAR FILTRATION RATE > 60.0 (>58); GLUCOSE, FASTING 237 MG/DL (70-100); POTASSIUM SERUM 4.9 MEQ/L (3.5-5.1); SODIUM LEVEL 137 MEQ/L (136-145)
== END ==
LOC: M PLALAB 09:05
PROVIDERS: ATTEND Internal Medicine Infectious Disease
DX: A49.01 Methicillin susceptible Staphylococcus aureus infection, unspecified site (principal)

== ENCOUNTER → 2021-08-03 | Outpatient (CLI) | payer OTHER ==
[2021-08-03 15:22] LABS: BASO # 0.1 10^3/uL (0.0-0.2); BASO % 0.7 % (0.0-1.0); EOS # 0.3 10^3/uL (0.0-0.5); EOS % 2.8 % (0.0-3.0); HEMATOCRIT 43.9 % (36.0-47.0); HEMOGLOBIN 14.4 g/dl (12.0-15.5); LYMPH # 2.5 10^3/uL (1.5-5.0); LYMPH % 28.1 % (24.0-44.0); MEAN CORPUSCULAR HEMOGLOBIN 27.7 pg (27.0-33.0); MEAN CORPUSCULAR HGB CONC 32.8 g/dl (32.0-36.5); MEAN CORPUSCULAR VOLUME 84.4 fl (80.0-96.0); MONO # 0.8 10^3/uL (0.0-0.8); MONO % 8.7 % (2.0-8.0); NEUTROPHILS # 5.3 10^3/uL (1.5-8.5); NEUTROPHILS % 59.1 % (36.0-66.0); PLATELET COUNT, AUTOMATED 215 10^3/uL (150-450); WHITE BLOOD COUNT 8.9 10^3/uL (4.0-10.0)
[2021-08-03 15:47] LABS: ERYTHROCYTE SEDIMENTATION RATE 23 mm/hr (0-20)
== END ==
LOC: M PLALAB 13:04
PROVIDERS: ATTEND Internal Medicine Infectious Disease
DX: A49.01 Methicillin susceptible Staphylococcus aureus infection, unspecified site (principal)

== ENCOUNTER → 2021-08-28 | Outpatient (CLI) | payer OTHER ==
[2021-08-28 17:12] LABS: BASO % 0.3 % (0.0-1.0); EOS # 0.1 10^3/uL (0.0-0.5); EOS % 1.4 % (0.0-3.0); HEMATOCRIT 39.7 % (36.0-47.0); HEMOGLOBIN 12.8 g/dl (12.0-15.5); LYMPH # 1.7 10^3/uL (1.5-5.0); MEAN CORPUSCULAR HEMOGLOBIN 27.6 pg (27.0-33.0); MEAN CORPUSCULAR HGB CONC 32.2 g/dl (32.0-36.5); MEAN CORPUSCULAR VOLUME 85.6 fl (80.0-96.0); MONO # 0.9 10^3/uL (0.0-0.8); MONO % 9.3 % (2.0-8.0); NEUTROPHILS # 6.7 10^3/uL (1.5-8.5); NEUTROPHILS % 70.4 % (36.0-66.0); PLATELET COUNT, AUTOMATED 218 10^3/uL (150-450); RED BLOOD COUNT 4.64 10^6/uL (4.00-5.40); WHITE BLOOD COUNT 9.5 10^3/uL (4.0-10.0)
== END ==
LOC: M PLALAB 14:19
PROVIDERS: ATTEND Internal Medicine Infectious Disease
DX: A49.01 Methicillin susceptible Staphylococcus aureus infection, unspecified site (principal)

== ENCOUNTER → 2021-10-06 | Outpatient (REF) | payer OTHER | LOC: M LAB REF 15:47 | PROVIDERS: ATTEND Podiatrist | DX: M79.671 Pain in right foot (principal); M79.672 Pain in left foot ==

== ENCOUNTER 2021-10-13 14:45 | Inpatient (IN) | payer OTHER ==
[2021-10-13 16:00] VITALS: BP 142/88
[2021-10-13] MEDS ORDERED: GLUCAGON INJ 1MG VIAL SC PRN (16:35)
[2021-10-13] MEDS ORDERED: GLUCOSE 4GM CHEW TABLET PO PRN (16:35)
[2021-10-13] MEDS ORDERED: DEXTROSE 50% 50 ML SYRINGE IV PRN (16:35)
[2021-10-13] MEDS ORDERED: AMOX875T2 PO (16:47)
[2021-10-13] MEDS ORDERED: HUMU500S2 SC (16:47)
[2021-10-13] MEDS ORDERED: SILV50CR EXT (16:47)
[2021-10-13] MEDS ORDERED: HOME MED LIST COMPLETE! XX SCH (16:50)
[2021-10-13] MEDS ORDERED: cefTRIAXone SOD 1 GM in D5W MINI-BAG PLUS 50 ML IV SCH (18:00)
[2021-10-13] MEDS: HumaLOG INSULIN (NovoLOG) PER UNIT SC SCH ×2 (18:16→20:27)
[2021-10-13] MEDS: cefTRIAXone SOD 1 GM in D5W MINI-BAG PLUS 50 ML IV SCH (20:04)
[2021-10-13] MEDS: ACETAMINOPHEN TAB 650MG DOSE (2X325MG) PO PRN (20:28)
[2021-10-13] MEDS: DOXYCYCLINE HYCLATE 100 MG in D5W MINI-BAG PLUS 100 ML IV SCH (21:44)
[2021-10-13 22:00] VITALS: BP 122/74
[2021-10-14 06:00] VITALS: BP 136/82
[2021-10-14 06:35] LABS: HEMATOCRIT 37.5 % (36.0-47.0); HEMOGLOBIN 11.9 g/dl (12.0-15.5); MEAN CORPUSCULAR HEMOGLOBIN 26.9 pg (27.0-33.0); MEAN CORPUSCULAR HGB CONC 31.7 g/dl (32.0-36.5); MEAN CORPUSCULAR VOLUME 84.8 fl (80.0-96.0); PLATELET COUNT, AUTOMATED 213 10^3/uL (150-450); RED BLOOD COUNT 4.42 10^6/uL (4.00-5.40); WHITE BLOOD COUNT 7.4 10^3/uL (4.0-10.0)
[2021-10-14 06:59] LABS: ALBUMIN 2.6 GM/DL (3.2-5.2); ALT/SGPT 26 U/L (12-78); BILIRUBIN,TOTAL 0.3 MG/DL (0.2-1.0); BLOOD UREA NITROGEN 11 MG/DL (7-18); C REACTIVE PROTEIN QUANTITATIV 6.72 MG/DL (0.00-0.30); CALCIUM LEVEL 9.2 MG/DL (8.5-10.1); CARBON DIOXIDE LEVEL 29 MEQ/L (21-32); CHLORIDE LEVEL 103 MEQ/L (98-107); ERYTHROCYTE SEDIMENTATION RATE 76 mm/hr (0-20); GLOMERULAR FILTRATION RATE > 60.0 (>58); GLUCOSE, FASTING 311 MG/DL (70-100); POTASSIUM SERUM 4.4 MEQ/L (3.5-5.1); SODIUM LEVEL 138 MEQ/L (136-145); TOTAL PROTEIN 7.4 GM/DL (6.4-8.2)
[2021-10-14] MEDS: DOXYCYCLINE HYCLATE 100 MG in D5W MINI-BAG PLUS 100 ML IV SCH ×2 (08:05→23:57)
[2021-10-14] MEDS: HumaLOG INSULIN (NovoLOG) PER UNIT SC SCH ×4 (08:05→21:00)
[2021-10-14 08:15] LABS: CHOLESTEROL LEVEL 136 MG/DL (<200); CHOLESTEROL RISK RATIO 5.666 (<5); HDL CHOLESTEROL 24 MG/DL (>40); LDL CHOLESTEROL 86 MG/DL (<100); NON-HDL-C 112 MG/DL; TRIGLYCERIDES LEVEL 130 MG/DL (<150)
[2021-10-14 10:30] LABS: HEMOGLOBIN A1c 11.2 %
[2021-10-14 14:00] VITALS: BP 140/87
[2021-10-14] MEDS ORDERED: LIDOCAINE 2% 100MG/5ML SDV (FOR ANES.) As Ordered ONE (19:42)
[2021-10-14] MEDS ORDERED: propofoL 200 MG/20 ML VIAL As Ordered ONE (19:42)
[2021-10-14] MEDS ORDERED: fentaNYL 100 MCG/2 ML INJECTION As Ordered ONE ×2 (19:43→21:35)
[2021-10-14] MEDS ORDERED: MIDAZOLAM INJ 2MG/2ML VIAL (J2250 PER 1MG) As Ordered ONE (19:43)
[2021-10-14] MEDS ORDERED: LIDOCAINE 2% MDV 20ML VIAL As Ordered ONE (20:08)
[2021-10-14] MEDS ORDERED: BUPIVACAINE HCL 0.5% 30ML VIAL As Ordered ONE (20:09)
[2021-10-14] MEDS ORDERED: GENTAMICIN SULF 80MG/2ML VIAL As Ordered ONE (21:10)
[2021-10-14] MEDS: fentaNYL 100 MCG/2 ML INJECTION IV PRN ×4 (21:33→21:50)
[2021-10-14] MEDS ORDERED: oxyCODONE 5MG TAB PO PRN (21:45)
[2021-10-14] MEDS ORDERED: LR 1,000 ML IV SCH (21:45)
[2021-10-14] MEDS ORDERED: ONDANSETRON 4MG/2ML VIAL IV PRN (21:45)
[2021-10-14 22:45] VITALS: BP 124/80
[2021-10-14] MEDS: cefTRIAXone SOD 1 GM in D5W MINI-BAG PLUS 50 ML IV SCH (23:16)
[2021-10-14 23:20] VITALS: BP 142/84
[2021-10-14 23:50] VITALS: BP 152/89
[2021-10-15] VITALS (9 sets, daily range): BP systolic 102–144; BP diastolic 72–87
[2021-10-15] MEDS: ACETAMINOPHEN TAB 650MG DOSE (2X325MG) PO PRN ×2 (00:05→17:08)
[2021-10-15] MEDS ORDERED: PERCOCET 5MG/325MG TAB PO PRN (00:15)
[2021-10-15] MEDS: PERCOCET 5MG/325MG TAB PO PRN ×2 (01:06→19:57)
[2021-10-15 07:46] LABS: HEMOGLOBIN 11.7 g/dl (12.0-15.5); MEAN CORPUSCULAR HEMOGLOBIN 26.7 pg (27.0-33.0); MEAN CORPUSCULAR HGB CONC 31.6 g/dl (32.0-36.5); MEAN CORPUSCULAR VOLUME 84.5 fl (80.0-96.0); PLATELET COUNT, AUTOMATED 219 10^3/uL (150-450); RED BLOOD COUNT 4.38 10^6/uL (4.00-5.40); WHITE BLOOD COUNT 6.2 10^3/uL (4.0-10.0)
[2021-10-15] MEDS: HumaLOG INSULIN (NovoLOG) PER UNIT SC SCH ×4 (08:06→20:07)
[2021-10-15 08:23] LABS: BLOOD UREA NITROGEN 12 MG/DL (7-18); CALCIUM LEVEL 9.3 MG/DL (8.5-10.1); CARBON DIOXIDE LEVEL 29 MEQ/L (21-32); CHLORIDE LEVEL 102 MEQ/L (98-107); CREATININE FOR GFR 0.74 MG/DL (0.55-1.30); GLOMERULAR FILTRATION RATE > 60.0 (>58); GLUCOSE, FASTING 415 MG/DL (70-100); POTASSIUM SERUM 4.3 MEQ/L (3.5-5.1); SODIUM LEVEL 137 MEQ/L (136-145)
[2021-10-15] MEDS: DOXYCYCLINE HYCLATE 100 MG in D5W MINI-BAG PLUS 100 ML IV SCH ×2 (08:52→20:29)
[2021-10-15] MEDS ORDERED: SILVER SULFADIAZINE 1% CR 50 GM JAR TOP SCH (11:55)
[2021-10-15] MEDS: cefTRIAXone SOD 1 GM in D5W MINI-BAG PLUS 50 ML IV SCH (19:44)
[2021-10-16 05:50] VITALS: BP 138/92
[2021-10-16] MEDS: DOXYCYCLINE HYCLATE 100 MG in D5W MINI-BAG PLUS 100 ML IV SCH (08:26)
[2021-10-16] MEDS: HumaLOG INSULIN (NovoLOG) PER UNIT SC SCH ×2 (08:26→12:23)
[2021-10-16] MEDS: PERCOCET 5MG/325MG TAB PO PRN (08:28)
[2021-10-16 08:39] LABS: HEMATOCRIT 40.7 % (36.0-47.0); HEMOGLOBIN 12.8 g/dl (12.0-15.5); MEAN CORPUSCULAR HEMOGLOBIN 26.6 pg (27.0-33.0); MEAN CORPUSCULAR HGB CONC 31.4 g/dl (32.0-36.5); MEAN CORPUSCULAR VOLUME 84.6 fl (80.0-96.0); PLATELET COUNT, AUTOMATED 231 10^3/uL (150-450); RED BLOOD COUNT 4.81 10^6/uL (4.00-5.40); WHITE BLOOD COUNT 5.5 10^3/uL (4.0-10.0)
[2021-10-16 08:55] LABS: BLOOD UREA NITROGEN 11 MG/DL (7-18); CALCIUM LEVEL 9.4 MG/DL (8.5-10.1); CARBON DIOXIDE LEVEL 27 MEQ/L (21-32); CHLORIDE LEVEL 104 MEQ/L (98-107); CREATININE FOR GFR 0.63 MG/DL (0.55-1.30); GLOMERULAR FILTRATION RATE > 60.0 (>58); GLUCOSE, FASTING 296 MG/DL (70-100); POTASSIUM SERUM 4.5 MEQ/L (3.5-5.1); SODIUM LEVEL 140 MEQ/L (136-145)
[2021-10-16] MEDS ORDERED: CEFD300CAP PO (13:22)
[2021-10-16] MEDS ORDERED: DOXY-350 PO (13:22)
[2021-10-16 14:00] VITALS: BP 122/76
[2021-10-16] MEDS ORDERED: PERCOCET PO (14:13)
== END 2021-10-16 14:25 | disposition home or self-care (01) | DRG 617 ==
LOC: M MS5PR 15:48
PROVIDERS: ADMIT Internal Medicine; ATTEND Internal Medicine
PROC: 0Y6V0Z0 Detachment at Right 4th Toe, Complete, Open Approach (ICD-10-PCS; principal; 2021-10-14 17:00)
DX: E11.621 Type 2 diabetes mellitus with foot ulcer (principal); E11.52 Type 2 diabetes mellitus with diabetic peripheral angiopathy with gangrene; Z79.4 Long term (current) use of insulin; Z79.899 Other long term (current) drug therapy; I10 Essential (primary) hypertension; E11.69 Type 2 diabetes mellitus with other specified complication; L97.529 Non-pressure chronic ulcer of other part of left foot with unspecified severity

== ENCOUNTER → 2021-11-25 | Outpatient (CLI) | payer OTHER ==
[~2021-11-25] MED LIST changes: +AMOX875T2 PO; +CEFD300CAP PO; +DOXY-350 PO; +SILV50CR EXT
[2021-11-25 10:52] LABS: HEMATOCRIT 43.2 % (36.0-47.0); HEMOGLOBIN 13.5 g/dl (12.0-15.5); MEAN CORPUSCULAR HEMOGLOBIN 26.8 pg (27.0-33.0); MEAN CORPUSCULAR HGB CONC 31.3 g/dl (32.0-36.5); MEAN CORPUSCULAR VOLUME 85.9 fl (80.0-96.0); PLATELET COUNT, AUTOMATED 215 10^3/uL (150-450); RED BLOOD COUNT 5.03 10^6/uL (4.00-5.40); WHITE BLOOD COUNT 8.8 10^3/uL (4.0-10.0)
[2021-11-25 11:21] LABS: BLOOD UREA NITROGEN 10 MG/DL (7-18); CALCIUM LEVEL 9.6 MG/DL (8.5-10.1); CARBON DIOXIDE LEVEL 28 MEQ/L (21-32); CHLORIDE LEVEL 102 MEQ/L (98-107); CREATININE FOR GFR 0.64 MG/DL (0.55-1.30); GLOMERULAR FILTRATION RATE > 60.0 (>58); GLUCOSE, FASTING 264 MG/DL (70-100); POTASSIUM SERUM 4.3 MEQ/L (3.5-5.1); SODIUM LEVEL 138 MEQ/L (136-145)
== END ==
LOC: M PLALAB 07:59
PROVIDERS: ATTEND Physician Assistant Medical
DX: Z01.818 Encounter for other preprocedural examination (principal); M79.672 Pain in left foot; M20.12 Hallux valgus (acquired), left foot; M20.42 Other hammer toe(s) (acquired), left foot

== ENCOUNTER → 2021-12-06 | Outpatient (CLI) | payer OTHER | LOC: M LABSMTC 09:22 | PROVIDERS: ATTEND Anesthesiology | DX: Z20.828 Contact with and (suspected) exposure to other viral communicable diseases (principal); Z11.59 Encounter for screening for other viral diseases ==

== ENCOUNTER 2021-12-11 06:07 | Day surgery (SDC) | payer OTHER ==
[~2021-12-11] VITALS: Ht 180.3 cm; Wt 119.7 kg
[~2021-12-11 06:07] MED LIST changes: +LR 1,000 ML IV SCH; +ceFAZolin SOD 1 GM in D5W MINI-BAG PLUS 50 ML IV ONE; +ceFAZolin SOD 2 GM in IV 1 EA IV ONE
[2021-12-11] MEDS ORDERED: LR 1,000 ML IV SCH (06:35)
[2021-12-11] MEDS ORDERED: LIDOCAINE 2% MDV 20ML VIAL As Ordered ONE (06:59)
[2021-12-11] MEDS ORDERED: dexameTHASONE 4 MG/ML 1ML VIAL (J1100 PER 1MG) As Ordered ONE (06:59)
[2021-12-11] MEDS ORDERED: BUPIVACAINE HCL 0.5% 30ML VIAL As Ordered ONE (07:00)
[2021-12-11] MEDS ORDERED: NEOSPORIN GU IRRIG 20 ML VIAL As Ordered ONE (07:00)
[2021-12-11] MEDS ORDERED: GENTAMICIN SULF 80MG/2ML VIAL As Ordered ONE (08:00)
[2021-12-11] MEDS ORDERED: propofoL 200 MG/20 ML VIAL As Ordered ONE ×3 (08:06→08:55)
[2021-12-11] MEDS ORDERED: MIDAZOLAM INJ 2MG/2ML VIAL (J2250 PER 1MG) As Ordered ONE (08:06)
[2021-12-11] MEDS ORDERED: fentaNYL 100 MCG/2 ML INJECTION As Ordered ONE (08:06)
[2021-12-11] MEDS ORDERED: ESMOLOL INJ 100MG/10ML VIAL As Ordered ONE (08:08)
[2021-12-11] MEDS ORDERED: GLYCOPYRROLATE INJ 0.2 MG/ML 2 ML VIAL As Ordered ONE (08:10)
[2021-12-11] MEDS ORDERED: KETOROLAC 60MG 2ML VIAL As Ordered ONE (09:36)
[2021-12-11] MEDS ORDERED: ACETAMINOPHEN 1000MG 100ML IV BTL (OFIRMEV) (J0131 PER 10MG) As Ordered ONE (09:37)
[2021-12-11 11:15] VITALS: BP 125/82
== END 2021-12-11 11:20 | disposition home or self-care (01) ==
LOC: M SDC 06:07
PROVIDERS: ATTEND Podiatrist
DX: M20.12 Hallux valgus (acquired), left foot (principal); M20.42 Other hammer toe(s) (acquired), left foot; M86.172 Other acute osteomyelitis, left ankle and foot; E11.40 Type 2 diabetes mellitus with diabetic neuropathy, unspecified; Z79.4 Long term (current) use of insulin
CPT/HCPCS: 28112; 28285; 28296; 73630; 76000; 81025; 87070; 87075; 87076; 87077; 87186; C1713; J0131; J0690; J1580; J1885; J2250; J3010

== ENCOUNTER → 2022-05-26 | Outpatient (REF) | payer OTHER ==
[~2022-05-26] MED LIST changes: -DOXY-350 PO; +DOXY-444 PO; +LEVO1TAB38 PO; -LEVO250T3 PO; -LR 1,000 ML IV SCH; -ceFAZolin SOD 1 GM in D5W MINI-BAG PLUS 50 ML IV ONE; -ceFAZolin SOD 2 GM in IV 1 EA IV ONE
== END ==
LOC: M LAB REF 16:38
PROVIDERS: ATTEND Podiatrist
DX: M79.671 Pain in right foot (principal); L03.129 Acute lymphangitis of unspecified part of limb

== ENCOUNTER → 2022-07-28 | Outpatient (REF) | payer OTHER | LOC: M LAB REF 16:05 | PROVIDERS: ATTEND Podiatrist | DX: M79.671 Pain in right foot (principal); L03.129 Acute lymphangitis of unspecified part of limb ==

== ENCOUNTER → 2022-07-29 | Outpatient (CLI) | payer OTHER | LOC: M WHC 07:58 | PROVIDERS: ATTEND Family Medicine | DX: N63.23 Unspecified lump in the left breast, lower outer quadrant (principal) ==

== ENCOUNTER → 2022-08-26 | Outpatient (REF) | payer OTHER | LOC: M LAB REF 16:21 | PROVIDERS: ATTEND Podiatrist | DX: L03.125 Acute lymphangitis of right lower limb (principal) ==

== ENCOUNTER → 2022-10-05 | Outpatient (REF) | payer OTHER | LOC: M LAB REF 16:28 | PROVIDERS: ATTEND Podiatrist | DX: L03.119 Cellulitis of unspecified part of limb (principal) ==

== ENCOUNTER → 2022-10-25 | Outpatient (REF) | payer OTHER | LOC: M LAB REF 12:43 | PROVIDERS: ATTEND Podiatrist | DX: L03.115 Cellulitis of right lower limb (principal) ==

== ENCOUNTER → 2022-11-22 | Outpatient (REF) | payer OTHER | LOC: M LAB REF 11:25 | PROVIDERS: ATTEND Podiatrist | DX: L03.115 Cellulitis of right lower limb (principal) ==

== ENCOUNTER 2022-12-01 14:03 | Day surgery (SDC) | payer OTHER ==
[~2022-12-01] VITALS: Ht 180.3 cm; Wt 120.6 kg
[~2022-12-01 14:03] MED LIST changes: +INSU100I24 PO; -INSU100I9 PO
[2022-12-01] MEDS ORDERED: AMOX875T2 PO (14:22)
[2022-12-01] MEDS ORDERED: LIDOCAINE 2% MDV 20ML VIAL As Ordered ONE (16:22)
[2022-12-01] MEDS ORDERED: GENTAMICIN SULF 80MG/2ML VIAL As Ordered ONE (16:22)
[2022-12-01] MEDS ORDERED: propofoL 200 MG/20 ML VIAL As Ordered ONE ×2 (16:23→17:58)
[2022-12-01] MEDS ORDERED: KETOROLAC 60MG 2ML VIAL As Ordered ONE (16:23)
[2022-12-01] MEDS ORDERED: fentaNYL 100 MCG/2 ML INJECTION As Ordered ONE (16:23)
[2022-12-01] MEDS ORDERED: MIDAZOLAM INJ 2MG/2ML VIAL As Ordered ONE (16:23)
[2022-12-01] MEDS ORDERED: LIDOCAINE 2% 100MG/5ML SDV (FOR ANES.) As Ordered ONE (16:23)
[2022-12-01] MEDS ORDERED: UNASYN 3GM VIAL As Ordered ONE (17:37)
[2022-12-01] MEDS ORDERED: HYDROMORPHONE HCL 0.5 MG/ 0.5 ML SYRINGE IV PRN (18:15)
[2022-12-01] MEDS ORDERED: oxyCODONE 5MG TAB PO PRN (18:15)
[2022-12-01] MEDS ORDERED: fentaNYL 100 MCG/2 ML INJECTION IV PRN (18:15)
[2022-12-01] MEDS ORDERED: ONDANSETRON 4MG 2ML VIAL IV PRN (18:15)
[2022-12-01] MEDS ORDERED: LR 1,000 ML IV SCH (18:15)
[2022-12-01 18:28] VITALS: BP 140/78; TEMP 98.2; O2SAT 97
== END 2022-12-01 18:40 | disposition home or self-care (01) ==
LOC: M SDC 14:03
PROVIDERS: ATTEND Podiatrist
DX: L03.115 Cellulitis of right lower limb (principal); L97.512 Non-pressure chronic ulcer of other part of right foot with fat layer exposed; L97.511 Non-pressure chronic ulcer of other part of right foot limited to breakdown of skin; B95.1 Streptococcus, group B, as the cause of diseases classified elsewhere; E11.40 Type 2 diabetes mellitus with diabetic neuropathy, unspecified; E11.59 Type 2 diabetes mellitus with other circulatory complications; M79.671 Pain in right foot; Z79.4 Long term (current) use of insulin; Z79.2 Long term (current) use of antibiotics
CPT/HCPCS: 28003; 87070; 87075; 87077; 87186; J0295; J1580; J1885; J2250; J3010; S0020